=== PATIENT | female | born 1990 | race Caucasian/White ===

== ENCOUNTER 2016-04-26 18:31 | Inpatient (IN) | payer OTHER ==
[2016-04-26] MEDS ORDERED: DINOPROSTONE 10 MG VAGINAL INSERT.SR PV PRN (18:35)
[2016-04-26 19:14] LABS: ABSOLUTE EOSINOPHILS # (AUTO) 0.1 10^3/uL (0.0-0.6); ABSOLUTE LYMPHOCYTES (AUTO) 1.8 10^3/uL (0.5-4.7); ABSOLUTE MONOCYTES (AUTO) 0.8 10^3/uL (0.1-1.4); ABSOLUTE NEUT (AUTO) 7.3 10^3/uL (1.7-8.2); BASOPHILS % (AUTO) 0.5 % (0-2); EOSINOPHILS % (AUTO) 0.9 % (0-6); HEMATOCRIT 32.2 % (36.0-47.0); HEMOGLOBIN 11.4 g/dL (12.0-15.5); MEAN CORPUSCULAR HEMOGLOBIN 30.8 pg (27.0-33.4); MEAN CORPUSCULAR HGB CONC 35.3 g/dL (32.0-36.0); MEAN CORPUSCULAR VOLUME 87 fl (80-97); RED BLOOD COUNT 3.69 10^6/uL (3.72-5.28); RED CELL DISTRIBUTION WIDTH 12.7 % (11.5-14.0); SEGMENTED NEUTROPHILS % (AUTO) 72.6 % (42-78)
[2016-04-26 19:33] LABS: APPEARANCE,URINE SLIGHTLY-CLOUDY; BILIRUBIN,URINE NEGATIVE (NEGATIVE); GLUCOSE, URINE NEGATIVE (NEGATIVE); KETONES,URINE NEGATIVE (NEGATIVE); LEUKOCYTE ESTERASE,URINE SMALL (NEGATIVE); NITRITE,URINE NEGATIVE (NEGATIVE); PROTEIN,URINE NEGATIVE (NEGATIVE); UROBILINOGEN,URINE NEGATIVE mg/dL (<2.0)
[2016-04-26 19:53] LABS: URINE BARBITURATES SCREEN NEGATIVE; URINE METHADONE SCREEN NEGATIVE; URINE OPIATES LOW NEGATIVE; URINE PHENCYCLIDINE SCREEN NEGATIVE
--- NOTE | 2016-04-26 20:01 | L&D Flow Sheet ---
LD Flowsheet Datetime Report Generated by CPN: 04/26/2016 20:00 Datetime: 04/26/2016 19:21 Patient Care IV/Blood Work: IV Started; IV Bolus Started; New IV Bag Hung; IV Bag Number @ 1 (Tanisha Lattibeaudeir, RN) Datetime: 04/26/2016 19:15 Medications Cervical Ripening Agents: Cervidil (Tanisha Lattibeaudeir, RN) Datetime: 04/26/2016 19:09 Communication Communication Comments: Report given to S. Lattibeaudeir, RN. Care relinquished at this time. (Monica Daley, RN) Datetime: 04/26/2016 19:04 Patient Care IV/Blood Work: Labs Drawn (Monica Edi, RN) Datetime: 04/26/2016 19:01 Patient Position/Activity: Left Lateral; Low Fowlers (Monica Maryoshifka, RN) Datetime: 04/26/2016 19:00 Teaching Instructional Method: Verbal; Patient Instructed; Verbalized Understanding (Monica Daley RN) Plan of Care: Plan of Care Discussed; Induction (Monica Daley RN) Unit Routine: [place] to Room; Call [place]; Bed; Visiting Policy; Waiting Areas; Unit Personnel; Monitoring; Bathroom Privileges (Monica Daley RN) Labor/Induction: Cervical Ripening (Monica Daley RN)
[2016-04-26] MEDS: RINGERS SOLUTION,LACTATED 1,000 ML IV PRN (20:03)
[2016-04-26] MEDS ORDERED: DINOPROSTONE 10 MG VAGINAL INSERT.SR ONE (20:31)
[2016-04-26] MEDS: ZOLPIDEM TARTRATE 5 MG TABLET PO SCH (20:48)
[2016-04-26] MEDS ORDERED: ZOLPIDEM TARTRATE 5 MG TABLET ONE (20:48)
[2016-04-27] MEDS: RINGERS SOLUTION,LACTATED 1,000 ML IV PRN (01:12)
[2016-04-27] MEDS ORDERED: PENICILLIN G-K 5 MILLION UNIT VIAL IV ONE (08:00)
[2016-04-27] MEDS ORDERED: PENICILLIN G POTASSIUM 5,000,000 UNIT in DEXTROSE 5%-WATER 100 ML IV ONE (08:00)
--- NOTE | 2016-04-27 08:01 | L&D Flow Sheet ---
LD Flowsheet Datetime Report Generated by CPN: 04/27/2016 08:00 Datetime: 04/27/2016 07:30 Monitor Mode: External; Palpation (Dallin Singletoneet, RN) Frequency (min): 2-5 (Dallin Queenie, RN) Quality: Mild/Moderate (Dallin Queenie, RN) Duration (sec): 70-110 (Dallin Singletoneet, RN) Resting Tone (Palpate): Relaxed (Dallin Queenie, RN) Monitor Mode: External US (Dallin Queenie, RN) FHR Baseline Rate : 135 (Dallin Queenie, RN) Variability: Moderate 6-25 bpm (Dallin Queenie, RN) Accelerations: 15X15 (Dallin Queenie, RN) Decelerations: None (Dallin Queenie, RN) Communication: RN Reviewed Strip (Dallin Jerome, RN) Datetime: 04/27/2016 07:00 Monitor Mode: External (Tanisha Lattibeaudeir, RN) Frequency (min): 1-4.5 (Tanisha Lattibeaudeir, RN) Quality: Mild/Moderate (Tanisha Lattibeaudeir, RN) Duration (sec): 50-100 (Tanisha Lattibeaudeir, RN) Resting Tone (Palpate): Relaxed (Tanisha Lattibeaudeir, RN) Monitor Mode: External US (Tanisha Lattibeaudeir, RN) FHR Baseline Rate : 135 (Tanisha Lattibeaudeir, RN) Variability: Moderate 6-25 bpm (Tanisha Lattibeaudeir, RN) Accelerations: 15X15 (Tanisha Lattibeaudeir, RN) Datetime: 04/27/2016 06:30 Monitor Mode: External (Tanisha Lattibeaudeir, RN) Frequency (min): 2-5.5 (Tanisha Lattibeaudeir, RN) Quality: Mild/Moderate (Tanisha Lattibeaudeir, RN) Duration (sec): 60-130 (Tanisha Lattibeaudeir, RN) Resting Tone (Palpate): Relaxed (Tanisha Lattibeaudeir, RN) Monitor Mode: External US (Tanisha Lattibeaudeir, RN) FHR Baseline Rate : 135 (Tanisha Lattibeaudeir, RN) Variability: Moderate 6-25 bpm (Tanisha Lattibeaudeir, RN) Accelerations: 15X15 (Tanisha Lattibeaudeir, RN) Datetime: 04/27/2016 06:00 Monitor Mode: External (Tanisha Lattibeaudeir, RN) Frequency (min): 1.5-5 (Tanisha Lattibeaudeir, RN) Quality: Mild/Moderate (Tanisha Lattibeaudeir, RN) Duration (sec): 50-120 (Tanisha Lattibeaudeir, RN) Resting Tone (Palpate): Relaxed (Tanisha Lattibeaudeir, RN) Monitor Mode: External US (Tanisha Lattibeaudeir, RN) FHR Baseline Rate : 120 (Tanisha Lattibeaudeir, RN) Variability: Moderate 6-25 bpm (Tanisha Lattibeaudeir, RN) Accelerations: 15X15 (Tanisha Lattibeaudeir, RN) Datetime: 04/27/2016 05:30 Monitor Mode: External (Tanisha Lattibeaudeir, RN) Frequency (min): 1.5-4.5 (Tanisha Lattibeaudeir, RN) Quality: Mild/Moderate (Tanisha Lattibeaudeir, RN) Duration (sec): 60-80 (Tanisha Lattibeaudeir, RN) Resting Tone (Palpate): Relaxed (Tanisha Lattibeaudeir, RN) Monitor Mode: External US (Tanisha Lattibeaudeir, RN) FHR Baseline Rate : 125 (Tanisha Lattibeaudeir, RN) Variability: Moderate 6-25 bpm (Tanisha Lattibeaudeir, RN) Accelerations: 15X15 (Tanisha Lattibeaudeir, RN) Datetime: 04/27/2016 05:23 I/O Interventions: Up to BR (Tanisha Lattibeaudeir, RN) Datetime: 04/27/2016 05:00 Monitor Mode: External (Tanisha Lattibeaudeir, RN) Frequency (min): 1.5-4 (Tanisha Lattibeaudeir, RN) Quality: Mild/Moderate (Tanisha Lattibeaudeir, RN) Duration (sec): 60-120 (Tanisha Lattibeaudeir, RN) Resting Tone (Palpate): Relaxed (Tanisha Lattibeaudeir, RN) Monitor Mode: External US (Tanisha Lattibeaudeir, RN) FHR Baseline Rate : 125 (Tanisha Lattibeaudeir, RN) Variability: Moderate 6-25 bpm (Tanisha Lattibeaudeir, RN) Accelerations: 15X15 (Tanisha Lattibeaudeir, RN) Datetime: 04/27/2016 04:30 Monitor Mode: External (Tanisha Lattibeaudeir, RN) Frequency (min): 2-6 (Tanisha Lattibeaudeir, RN) Quality: Mild/Moderate (Tanisha Lattibeaudeir, RN) Duration (sec): 60-120 (Tanisha Lattibeaudeir, RN) Resting Tone (Palpate): Relaxed (Tanisha Lattibeaudeir, RN) Monitor Mode: External US (Tanisha Lattibeaudeir, RN) FHR Baseline Rate : 135 (Tanisha Lattibeaudeir, RN) Variability: Moderate 6-25 bpm (Tanisha Lattibeaudeir, RN) Accelerations: 15X15 (Tanisha Lattibeaudeir, RN) Datetime: 04/27/2016 04:00 Monitor Mode: External (Tanisha Lattibeaudeir, RN) Frequency (min): 1-5.5 (Tanisha Lattibeaudeir, RN) Quality: Mild/Moderate (Tanisha Lattibeaudeir, RN) Duration (sec): 60-140 (Tanisha Lattibeaudeir, RN) Resting Tone (Palpate): Relaxed (Tanisha Lattibeaudeir, RN) Monitor Mode: External US (Tanisha Lattibeaudeir, RN) FHR Baseline Rate : 130 (Tanisha Lattibeaudeir, RN) Variability: Moderate 6-25 bpm (Tanisha Lattibeaudeir, RN) Accelerations: 15X15 (Tanisha Lattibeaudeir, RN) Datetime: 04/27/2016 03:30 Monitor Mode: External (Tanisha Lattibeaudeir, RN) Frequency (min): 1.5-6 (Tanisha Lattibeaudeir, RN) Quality: Mild/Moderate (Tanisha Lattibeaudeir, RN) Duration (sec): 60-140 (Tanisha Lattibeaudeir, RN) Resting Tone (Palpate): Relaxed (Tanisha Lattibeaudeir, RN) Monitor Mode: External US (Tanisha Lattibeaudeir, RN) FHR Baseline Rate : 135 (Tanisha Lattibeaudeir, RN) Variability: Moderate 6-25 bpm (Tanisha Lattibeaudeir, RN) Accelerations: 15X15 (Tanisha Lattibeaudeir, RN) Datetime: 04/27/2016 03:00 Monitor Mode: External (Tanisha Lattibeaudeir, RN) Frequency (min): 1.5-7 (Tanisha Lattibeaudeir, RN) Quality: Mild/Moderate (Tanisha Lattibeaudeir, RN) Duration (sec): 60-160 (Tanisha Lattibeaudeir, RN) Resting Tone (Palpate): Relaxed (Tanisha Lattibeaudeir, RN) Monitor Mode: External US (Tanisha Lattibeaudeir, RN) FHR Baseline Rate : 130 (Tanisha Lattibeaudeir, RN) Variability: Moderate 6-25 bpm (Tanisha Lattibeaudeir, RN) Accelerations: 15X15 (Tanisha Lattibeaudeir, RN) Datetime: 04/27/2016 02:30 Monitor Mode: External (Tanisha Lattibeaudeir, RN) Frequency (min): 1.5-7 (Tanisha Lattibeaudeir, RN) Quality: Mild/Moderate (Tanisha Lattibeaudeir, RN) Duration (sec): 50-150 (Tanisha Lattibeaudeir, RN) Resting Tone (Palpate): Relaxed (Tanisha Lattibeaudeir, RN) Monitor Mode: External US (Tanisha Lattibeaudeir, RN) FHR Baseline Rate : 125 (Tanisha Lattibeaudeir, RN) Variability: Moderate 6-25 bpm (Tanisha Lattibeaudeir, RN) Accelerations: 15X15 (Tanisha Lattibeaudeir, RN) Datetime: 04/27/2016 02:00 Monitor Mode: External (Tanisha Lattibeaudeir, RN) Frequency (min): 2-5 (Tanisha Lattibeaudeir, RN) Quality: Mild/Moderate (Tanisha Lattibeaudeir, RN) Duration (sec): 40-150 (Tanisha Lattibeaudeir, RN) Resting Tone (Palpate): Relaxed (Tanisha Lattibeaudeir, RN) Monitor Mode: External US (Tanisha Lattibeaudeir, RN) FHR Baseline Rate : 125 (Tanisha Lattibeaudeir, RN) Variability: Moderate 6-25 bpm (Tanisha Lattibeaudeir, RN) Accelerations: 15X15 (Tanisha Lattibeaudeir, RN) Datetime: 04/27/2016 01:30 Monitor Mode: External (Tanisha Lattibeaudeir, RN) Frequency (min): 1.5-3.5 (Tanisha Lattibeaudeir, RN) Quality: Mild/Moderate (Tanisha Lattibeaudeir, RN) Duration (sec): 60-120 (Tanisha Lattibeaudeir, RN) Resting Tone (Palpate): Relaxed (Tanisha Lattibeaudeir, RN) Monitor Mode: External US (Tanisha Lattibeaudeir, RN) FHR Baseline Rate : 120 (Tanisha Lattibeaudeir, RN) Variability: Moderate 6-25 bpm (Tanisha Lattibeaudeir, RN) Accelerations: 15X15 (Tanisha Lattibeaudeir, RN) Datetime: 04/27/2016 01:11 IV/Blood Work: New IV Bag Hung; IV Bag Number @ 2 (Tanisha Lattibeaudeir, RN) Datetime: 04/27/2016 01:00 Monitor Mode: External (Tanisha Lattibeaudeir, RN) Frequency (min): 3-6 (Tanisha Lattibeaudeir, RN) Quality: Mild/Moderate (Tanisha Lattibeaudeir, RN) Duration (sec): 50-120 (Tanisha Lattibeaudeir, RN) Resting Tone (Palpate): Relaxed (Tanisha Lattibeaudeir, RN) Monitor Mode: External US (Tanisha Lattibeaudeir, RN) FHR Baseline Rate : 125 (Tanisha Lattibeaudeir, RN) Variability: Moderate 6-25 bpm (Tanisha Lattibeaudeir, RN) Accelerations: 15X15 (Tanisha Lattibeaudeir, RN) Datetime: 04/27/2016 00:59 I/O Interventions: Up to BR (Tanisha Lattibeaudeir, RN) Datetime: 04/27/2016 00:30 Monitor Mode: External (Tanisha Lattibeaudeir, RN) Frequency (min): 2.5-6.5 (Tanisha Lattibeaudeir, RN) Quality: Mild (Tanisha Lattibeaudeir, RN) Duration (sec): 60-150 (Tanisha Lattibeaudeir, RN) Resting Tone (Palpate): Relaxed (Tanisha Lattibeaudeir, RN) Monitor Mode: External US (Tanisha Lattibeaudeir, RN) FHR Baseline Rate : 125 (Tanisha Lattibeaudeir, RN) Variability: Moderate 6-25 bpm (Tanisha Lattibeaudeir, RN) Accelerations: 15X15 (Tanisha Lattibeaudeir, RN) Datetime: 04/27/2016 00:00 Monitor Mode: External (Tanisha Lattibeaudeir, RN) Frequency (min): 1.5-7.5 (Tanisha Lattibeaudeir, RN) Quality: Moderate (Tanisha Lattibeaudeir, RN) Duration (sec): 60-110 (Tanisha Lattibeaudeir, RN) Resting Tone (Palpate): Relaxed (Tanisha Lattibeaudeir, RN) Monitor Mode: External US (Tanisha Lattibeaudeir, RN) FHR Baseline Rate : 120 (Tanisha Lattibeaudeir, RN) Variability: Moderate 6-25 bpm (Tanisha Lattibeaudeir, RN) Accelerations: 15X15 (Tanisha Lattibeaudeir, RN) Datetime: 04/26/2016 23:30 Monitor Mode: External (Tanisha Lattibeaudeir, RN) Frequency (min): 1-5 (Tanisha Lattibeaudeir, RN) Quality: Mild (Tanisha Lattibeaudeir, RN) Duration (sec): 50-120 (Tanisha Lattibeaudeir, RN) Resting Tone (Palpate): Relaxed (Tanisha Lattibeaudeir, RN) Monitor Mode: External US ([place] Lattibeaudeir, RN) FHR Baseline Rate : 130 (Tanisha Lattibeaudeir, RN) Variability: Moderate 6-25 bpm (Tanisha Lattibeaudeir, RN) Accelerations: 15X15 (Tanisha Lattibeaudeir, RN) Datetime: 04/26/2016 23:00 Monitor Mode: External (Tanisha Lattibeaudeir, RN) Frequency (min): 1.5-8 (Tanisha Lattibeaudeir, RN) Quality: Mild (Tanisha Lattibeaudeir, RN) Duration (sec): 60-120 (Tanisha Lattibeaudeir, RN) Resting Tone (Palpate): Relaxed (Tanisha Lattibeaudeir, RN) Monitor Mode: External US (Tanisha Lattibeaudeir, RN) FHR Baseline Rate : 130 (Tanisha Lattibeaudeir, RN) Variability: Moderate 6-25 bpm (Tanisha Lattibeaudeir, RN) Accelerations: 15X15 (Tanisha Lattibeaudeir, RN) Datetime: 04/26/2016 22:30 Monitor Mode: External (Tanisha Lattibeaudeir, RN) Frequency (min): 4-8 (Tanisha Lattibeaudeir, RN) Quality: Mild (Tanisha Lattibeaudeir, RN) Duration (sec): 60-110 (Tanisha Lattibeaudeir, RN) Resting Tone (Palpate): Relaxed (Tanisha Lattibeaudeir, RN) Monitor Mode: External US (Tanisha Lattibeaudeir, RN) FHR Baseline Rate : 135 (Tanisha Lattibeaudeir, RN) Variability: Moderate 6-25 bpm (Tanisha Lattibeaudeir, RN) Accelerations: 15X15 (Tanisha Lattibeaudeir, RN) Datetime: 04/26/2016 22:00 Frequency (min): 1-14 (Tanisha Lattibeaudeir, RN) Quality: Mild (Tanisha Lattibeaudeir, RN) Duration (sec): 60-110 (Tanisha Lattibeaudeir, RN) Resting Tone (Palpate): Relaxed (Tanisha Lattibeaudeir, RN) Monitor Mode: External US (Tanisha Lattibeaudeir, RN) FHR Baseline Rate : 135 (Tanisha Lattibeaudeir, RN) Variability: Moderate 6-25 bpm (Tanisha Lattibeaudeir, RN) Accelerations: 15X15 (Tanisha Lattibeaudeir, RN) Datetime: 04/26/2016 21:41 NBP Sys/Lizzie/Mean (mmHg): 123 (QS system process) : 64 (QS system process) : 88 (QS system process) Pulse: 82 (QS system process) Respirations: 16 (Tanisha Lattibeaudeir, RN) Temperature (F): 98.2 (Tanisha Lattibeaudeir, RN) Temperature (C): 36.8 (QS system process) Temperature Route: Oral (Tanisha Lattibeaudeir, RN) LaborFlag: Antepartum (QS system process) Datetime: 04/26/2016 21:30 Monitor Mode: External (Tanisha Lattibeaudeir, RN) Frequency (min): x3 (Tanisha Lattibeaudeir, RN) Quality: Mild (Tanisha Lattibeaudeir, RN) Duration (sec): 110-120 (Tanisha Lattibeaudeir, RN) Resting Tone (Palpate): Relaxed (Tanisha Lattibeaudeir, RN) Monitor Mode: External US (Tanisha Lattibeaudeir, RN) FHR Baseline Rate : 125 (Tanisha Lattibeaudeir, RN) Variability: Moderate 6-25 bpm (Tanisha Lattibeaudeir, RN) Accelerations: 15X15 (Tanisha Lattibeaudeir, RN) Datetime: 04/26/2016 21:00 Monitor Mode: External; Palpation (Tanisha Lattibeaudeir, RN) Quality: Mild (Tanisha Lattibeaudeir, RN) Resting Tone (Palpate): Relaxed (Tanisha Lattibeaudeir, RN) Contraction Comments: unable to determine frequency, patient states that she does feel cramping. (Tanisha Lattibeaudeir, RN) Monitor Mode: External US (Tanisha Lattibeaudeir, RN) FHR Baseline Rate : 125 (Tanisha Lattibeaudeir, RN) Variability: Moderate 6-25 bpm (Tanisha Lattibeaudeir, RN) Accelerations: 15X15 (Tanisha Lattibeaudeir, RN) Datetime: 04/26/2016 20:48 Analgesics/Sedatives: Ambien (mg) @ 5 (Tanisha Fleming, FERNANDA) Datetime: 04/26/2016 20:40 Dilatation (cm): 2.0 (Tanisha Fleming RN) Effacement (%): 25 (Tanisha Fleming RN) Station: -2 (Tanisha Fleming RN) Exam by: Francis Fleming RN (Tanisha Fleming, RN) Membrane Status: Intact (Tanisha Fleming RN) Vaginal Bleeding: None (Tanisha Fleming RN) Cervix, Consistency: Moderate (Tanisha Fleming RN) Cervix, Position: Midposition (Tanisha Fleming RN) Vaginal Exam Comments: cervix off to patient's right (Tanisha Fleming RN) Cervical Ripening Agents: Cervidil (Tanisha Fleming RN) Datetime: 04/26/2016 20:30 Monitor Mode: External (Tanisha Lattibeaudeir, RN) Frequency (min): 2-8.5 (Tanisha Lattibeaudeir, RN) Quality: Mild (Tanisha Lattibeaudeir, RN) Duration (sec): 60-160 (Tanisha Lattibeaudeir, RN) Resting Tone (Palpate): Relaxed (Tanisha Lattibeaudeir, RN) Monitor Mode: External US (Tanisha Lattibeaudeir, RN) FHR Baseline Rate : 135 (Tanisha Lattibeaudeir, RN) Variability: Moderate 6-25 bpm (Tanisha Lattibeaudeir, RN) Accelerations: 15X15 (Tanisha Lattibeaudeir, RN) Datetime: 04/26/2016 20:28 I/O Interventions: Up to BR (Tanisha Lattibeaudeir, RN) Datetime: 04/26/2016 20:00 Monitor Mode: External (Tanisha Fleming RN) Frequency (min): x2 (Tanisha Fleming RN) Quality: Mild (Tanisha Fleming RN) Duration (sec): 110-160 (Tanisha Fleming RN) Resting Tone (Palpate): Relaxed (Tanisha Fleming RN) Monitor Mode: External US (Tanisha Fleming RN) FHR Baseline Rate : 130 (Tanisha Fleming RN) Variability: Moderate 6-25 bpm (Tanisha Fleming RN) Accelerations: 15X15 (Tanisha Fleming RN)
[2016-04-27] MEDS ORDERED: OXYTOCIN/NORMAL SALINE 1,000 ML IV PRN ×2 (11:17→18:34)
[2016-04-27] MEDS ORDERED: PENICILLIN G-K 5 MILLION UNIT VIAL ONE ×2 (11:22→15:09)
[2016-04-27] MEDS ORDERED: OXYTOCIN/NORMAL SALINE 20 UNIT/1,000 ML RTUINJ ONE (11:22)
--- NOTE | 2016-04-27 11:36 | L&D Progress Notes ---
PROGRESS NOTES Datetime Report Generated by CPN: 04/27/2016 11:35 PROGRESS NOTE Plan: Induction Informed Consent Obtained: Vaginal Delivery; Induction of Labor; Risks, Benefits and Alternatives Discussed Comment: 25 yo admitted for cervidil 04/26/16 EDC 05/11/16 EGA 37 weeks admitted for IUGR <3% Parvo IgM- negative IgM- positive GBS positive Term gbs prophlaxis sve 2 favorable plan of care reviewed start pitocin per protocol gbs prophylaxis plan of care reviewed VAGINAL EXAM Dilatation: 3 Effacement: 50 Station: -2 Contractions: q1-6 MEMBRANES Membranes: Intact Membranes: Intact FETUS A Monitoring: External US Variability: Moderate 6-25bpm Accelerations: 15X15 Decelerations: None FHR Category: Category I : 37.0 SIGNATURE SIGNATURE: [id number] Assignment: Jeff Hines MD Signature: with User ID: [email or web address] : with User ID: [email or web address]
[2016-04-27] MEDS ORDERED: PENICILLIN G POTASSIUM 2,500,000 UNIT in DEXTROSE 5%-WATER 50 ML IV SCH (12:00)
[2016-04-27] MEDS ORDERED: PENICILLIN G-K 5 MILLION UNIT VIAL IV SCH (12:00)
[2016-04-27] MEDS ORDERED: EPHEDRINE SULFATE INJ 50 MG/1 ML AMPULE ONE (14:57)
[2016-04-27] MEDS ORDERED: FENTANYL/BUPIVACAINE/NS/PF 200 MCG/100 ML RTUINJ EPI ONE (14:58)
[2016-04-27] MEDS ORDERED: BUPIVACAINE HCL 0.25 % INJ/PF (2.5 MG/1 ML) 30 ML VIAL ONE (14:58)
--- NOTE | 2016-04-27 16:39 | L&D Progress Notes ---
PROGRESS NOTES Datetime Report Generated by CPN: 04/27/2016 16:38 PROGRESS NOTE Procedures: Artificial ROM Plan: Continue Present Management; Induction Informed Consent Obtained: Vaginal Delivery; Section Delivery; Induction of Labor; Risks, Benefits and Alternatives Discussed Vital Signs : Reviewed Comment: pt comfortable after epidural placement ctxs irregular pitocin at 18 mu/ min AROM clear cervix / GBS positive IUGR- term prophylaxis x 2 contractions 2-3 now anticipate VAGINAL EXAM Dilatation: 4 Effacement: 75 Station: -2 MEMBRANES Membranes: Ruptured Amniotic Fluid Color: Clear FETUS A Monitoring: External US Decelerations: None FHR Category: Category I : 38.0 FETUS C SIGNATURE: [id number] Assignment: Jeff Hines MD Signature: with User ID: [email or web address] : with User ID: [email or web address]
[2016-04-27] MEDS ORDERED: LIDOCAINE 2% INJ-PF (20 MG/ML) 10 ML AMPUL ONE (17:13)
[2016-04-27] MEDS ORDERED: LIDOCAINE 1% INJ-PF (10 MG/ML) 30 ML SDV ONE (17:49)
[2016-04-27] MEDS ORDERED: MISOPROSTOL 0.2 MG TABLET ONE (17:49)
[2016-04-27] MEDS ORDERED: PSEUDOEPHEDRINE HCL 30 MG TABLET PO PRN (18:34)
[2016-04-27] MEDS ORDERED: ACETAMINOPHEN 650 MG SUPP.RECT PR PRN (18:34)
[2016-04-27] MEDS ORDERED: GLYCERIN/WITCH HAZEL LEAF 1 EACH MED..PAD TP PRN (18:34)
[2016-04-27] MEDS ORDERED: ACETAMINOPHEN WITH CODEINE #3 TABLET PO PRN ×2 (18:34)
[2016-04-27] MEDS ORDERED: ZOLPIDEM TARTRATE 5 MG TABLET PO PRN (18:34)
[2016-04-27] MEDS ORDERED: MEASLES,MUMPS&RUBELLA VACC/PF 0.5 ML VIAL SUBCUT PRN (18:34)
[2016-04-27] MEDS ORDERED: DIBUCAINE 1% OINTMENT 28 GM TP PRN (18:34)
[2016-04-27] MEDS ORDERED: DIPHENHYDRAMINE HCL 25 MG CAPSULE PO PRN (18:34)
[2016-04-27] MEDS ORDERED: NA PHOS,M-B/NA PHOS,DI-BA (ADULT) 133 ML ENEMA PR PRN (18:34)
[2016-04-27] MEDS ORDERED: PROMETHAZINE HCL 25 MG SUPP.RECT PR PRN (18:34)
[2016-04-27] MEDS ORDERED: PROMETHAZINE HCL 25 MG TABLET PO PRN (18:34)
[2016-04-27] MEDS ORDERED: MAGNESIUM HYDROXIDE SUSP 30 ML UDCUP PO PRN (18:34)
[2016-04-27] MEDS ORDERED: DIPH/PERTUSS(ACELL)/TETANUS VAC/PF 0.5 ML SYR (>=10YO) IM PRN (18:34)
[2016-04-27] MEDS ORDERED: PROMETHAZINE HCL INJ 25 MG/1 ML VIAL IV PRN (18:34)
[2016-04-27] MEDS ORDERED: BENZOCAINE/MENTHOL AEROSOL SPRAY 56 ML TOP PRN (18:34)
--- NOTE | 2016-04-27 20:03 | L&D Flow Sheet ---
LD Flowsheet Datetime Report Generated by CPN: 04/27/2016 20:00 Datetime: 04/27/2016 19:49 NBP Sys/Lizzie/Mean (mmHg): 129 (QS system process) : 81 (QS system process) : 100 (QS system process) Pulse: 65 (QS system process) Respirations: 16 (Danuta Vitrano, RN) Datetime: 04/27/2016 19:45 Stage of : Recovery (Danuta Vitrano, RN) Pain Scale: 0 (Danuta Vitrano, RN) Pain Presence: None/Denies (Danuta Vitrano, RN) Pain Type: N/A (Danuta Vitrano, RN) Datetime: 04/27/2016 19:34 NBP Sys/Lizzie/Mean (mmHg): 132 (QS system process) : 86 (QS system process) : 104 (QS system process) Pulse: 76 (QS system process) Respirations: 16 (Danuta Vitrano, RN) Datetime: 04/27/2016 19:30 Stage of : Recovery (Danuta Vitrano, RN) Pain Scale: 0 (Danuta Vitrano, RN) Pain Presence: None/Denies (Danuta Vitrano, RN) Pain Type: N/A (Danuta Vitrano, RN) Datetime: 04/27/2016 19:20 NBP Sys/Lizzie/Mean (mmHg): 130 (QS system process) : 81 (QS system process) : 98 (QS system process) Pulse: 78 (QS system process) Respirations: 16 (Danuta Vitrano, RN) Datetime: 04/27/2016 19:15 Stage of : Recovery (Danuta Vitrano, RN) Pain Scale: 0 (Danuta Vitrano, RN) Pain Presence: None/Denies (Danuta Vitrano, RN) Pain Type: N/A (Danuta Vitrano, RN) Datetime: 04/27/2016 19:04 NBP Sys/Lizzie/Mean (mmHg): 136 (QS system process) : 60 (QS system process) : 87 (QS system process) Pulse: 78 (QS system process) Respirations: 16 (Danuta Vitrano, RN) Datetime: 04/27/2016 19:00 Stage of : Recovery (Danuta Vitrano, RN) Pain Scale: 0 (Danuta Vitrano, RN) Pain Presence: None/Denies (Danuta Vitrano, RN) Pain Type: N/A (Danuta Vitrano, RN) Datetime: 04/27/2016 18:52 Stage of : Recovery (Danuta Vitrano, RN) Datetime: 04/27/2016 18:51 Stage of : Recovery (Danuta Vitrano, RN) Pain Scale: 0 (Danuta Vitrano, RN) Pain Presence: None/Denies (Danuta Vitrano, RN) Pain Type: N/A (Danuta Vitrano, RN) Datetime: 04/27/2016 18:49 NBP Sys/Lizzie/Mean (mmHg): 126 (QS system process) : 60 (QS system process) : 87 (QS system process) Pulse: 77 (QS system process) Respirations: 17 (Danuta Vitrano, RN) LaborFlag: Labor (QS system process) Datetime: 04/27/2016 18:45 Monitor Mode: External (Danuta Vitrano, RN) Frequency (min): 1-3 (Danuta Vitrano, RN) Quality: Moderate to Strong (Danuta Vitrano, RN) Duration (sec): 50-100 (Danuta Vitrano, RN) Duration Criteria: Less than Two 120 Second Contractions (Danuta Vitrano, RN) Pattern: Normal: <= 5 Contractions in 10 Minutes (Danuta Ford RN) Resting Tone (Palpate): Relaxed (Danuta Ford RN) Monitor Mode: External US (Danuta Ford RN) Comments: Unable to establish baseline d/t broken tracing, RN adjusting US continuously. (Danuta Ford RN) Pitocin (milliunit): Pitocin Remains (milliunits) @ 18 (Danuta Ford RN) Stage 2 Comments: viable baby girl, see delivery summary (Danuta Ford RN) Datetime: 04/27/2016 18:41 Provider Reviewed Strip: Yes (Danuta Ford RN) Communication: Provider at Bedside (Danuta Ford RN) Datetime: 04/27/2016 18:38 Pushing Progress: Presenting Part Visible (Danuta Ford RN) Datetime: 04/27/2016 18:34 Pushing Progress: Descent with Pushing (Danuta Vitrano, RN) Datetime: 04/27/2016 18:30 Monitor Mode: External (Danuta Vitrano, RN) Frequency (min): 1-3 (Danuta Vitrano, RN) Quality: Moderate to Strong (Danuta Vitrano, RN) Duration (sec): 60-100 (Danuta Vitrano, RN) Duration Criteria: Less than Two 120 Second Contractions (Danuta Vitrano, RN) Pattern: Normal: <= 5 Contractions in 10 Minutes (Danuta Vitrano, RN) Resting Tone (Palpate): Relaxed (Danuta Vitrano, RN) Monitor Mode: External US (Danuta Vitrano, RN) Comments: Unable to establish baseline d/t broken tracing, RN remains at bedside adjusting US (Danuta Vitrano, RN) Pitocin (milliunit): Pitocin Remains (milliunits) @ 18 (Danuta Vitrano, RN) Datetime: 04/27/2016 18:26 Pushing Position: Pushing Lithotomy (Danuta Vitrano, RN) Datetime: 04/27/2016 18:22 Pushing Position: Pushing Left Side (Danuta Vitrano, RN) Datetime: 04/27/2016 18:19 NBP Sys/Lizzie/Mean (mmHg): 125 (QS system process) : 73 (QS system process) : 93 (QS system process) Pulse: 76 (QS system process) Respirations: 17 (Danuta Vitrano, RN) LaborFlag: Labor (QS system process) Datetime: 04/27/2016 18:15 Monitor Mode: External (Danuta Vitrano, RN) Frequency (min): 1-3 (Danuta Vitrano, RN) Quality: Moderate to Strong (Danuta Vitrano, RN) Duration (sec): 60-100 (Danuta Vitrano, RN) Duration Criteria: Less than Two 120 Second Contractions (Danuta Vitrano, RN) Pattern: Normal: <= 5 Contractions in 10 Minutes (Danuta Vitrano, RN) Resting Tone (Palpate): Relaxed (Danuta Vitrano, RN) Monitor Mode: External US (Danuta Vitrano, RN) FHR Baseline Rate : 120 (Danuta Vitrano, RN) Variability: Moderate 6-25 bpm (Danuta Vitrano, RN) Accelerations: None (Danuta Vitrano, RN) Decelerations: Variable; Prolonged (Danuta Vitrano, RN) Pitocin (milliunit): Pitocin Remains (milliunits) @ 18 (Danuta Vitrano, RN) Patient Position/Activity: Left Tilt (Danuta Vitrano, RN) Datetime: 04/27/2016 18:12 Stage 2 Comments: Tug of war (Danuta Vitrano, RN) Datetime: 04/27/2016 18:09 Pushing Position: Pushing Lithotomy (Danuta Vitrano, RN) Stage 2 Comments: R tilt (Danuta Vitrano, RN) Datetime: 04/27/2016 18:05 Pushing Position: Pushing Right Side (Danuta Vitrano, RN) Datetime: 04/27/2016 18:03 Pushing Progress: Descent with Pushing (Danuta Vitrano, RN) Datetime: 04/27/2016 18:01 Pushing Position: Pushing Lithotomy (Danuta Vitrano, RN) Datetime: 04/27/2016 18:00 Monitor Mode: External; Palpation (Danuta Vitrano, RN) Frequency (min): 1-3 (Danuta Vitrano, RN) Quality: Moderate to Strong (Danuta Vitrano, RN) Duration (sec): 60-100 (Danuta Vitrano, RN) Duration Criteria: Less than Two 120 Second Contractions (Danuta Vitrano, RN) Pattern: Normal: <= 5 Contractions in 10 Minutes (Danuta Vitrano, RN) Resting Tone (Palpate): Relaxed (Danuta Vitrano, RN) Monitor Mode: External US (Danuta Vitrano, RN) FHR Baseline Rate : 135 (Danuta Vitrano, RN) Variability: Moderate 6-25 bpm (Danuta Vitrano, RN) Accelerations: None (Danuta Vitrano, RN) Decelerations: Variable (Danuta Vitrano, RN) Pitocin (milliunit): Pitocin Remains (milliunits) @ 18 (Danuta Vitrano, RN) Datetime: 04/27/2016 17:58 IV/Blood Work: IV Infusing per Order (Danuta Vitrano, RN) Pushing Position: Pushing Left Side (Danuta Vitrano, RN) Datetime: 04/27/2016 17:53 Stage 2 Comments: Pt to begin pushing with contractions. RN remains at bedside continuously adjusting US and assessing FHTs. (Danuta Vitrano, RN) Datetime: 04/27/2016 17:51 I/O Interventions: Mtz Discontinued (Danuta Vitrano, RN) Datetime: 04/27/2016 17:50 NBP Sys/Lizzie/Mean (mmHg): 130 (QS system process) : 78 (QS system process) : 97 (QS system process) Pulse: 82 (QS system process) Respirations: 17 (Danuta Ford RN) LaborFlag: Labor (QS system process) Datetime: 04/27/2016 17:47 Dilatation (cm): 10.0 (Danuta Liliana RN) Effacement (%): 100 (Danuta Liliana, RN) Station: 2 (Danuta Liliana, RN) Exam by: Juan Ford RN (Danuta Liliana, RN) Communication Comments: Dr. Hines notified, pt to begin pushing (Danutaean Ford RN) Datetime: 04/27/2016 17:45 Monitor Mode: External (Danuta Vitrano, RN) Frequency (min): 1-3 (Danuta Vitrano, RN) Quality: Moderate to Strong (Danuta Vitrano, RN) Duration (sec): 50-100 (Danuta Vitrano, RN) Duration Criteria: Less than Two 120 Second Contractions (Danuta Vitrano, RN) Pattern: Normal: <= 5 Contractions in 10 Minutes (Danuta Vitrano, RN) Resting Tone (Palpate): Relaxed (Danuta Vitrano, RN) Monitor Mode: External US (Danuta Vitrano, RN) FHR Baseline Rate : 135 (Danuta Vitrano, RN) Variability: Moderate 6-25 bpm (Danuta Vitrano, RN) Accelerations: None (Danuta Vitrano, RN) Decelerations: Variable; Prolonged (Danuta Vitrano, RN) Pitocin (milliunit): Pitocin Remains (milliunits) @ 18 (Danuta Vitrano, RN) Datetime: 04/27/2016 17:40 Pain Presence: None/Denies (Danuta Vitrano, RN) Pain Type: N/A (Danuta Vitrano, RN) Patient Position/Activity: Left Lateral; Peanut Ball (Danuta Vitrano, RN) LaborFlag: Labor (QS system process) Datetime: 04/27/2016 17:35 NBP Sys/Lizzie/Mean (mmHg): 117 (QS system process) : 65 (QS system process) : 85 (QS system process) Pulse: 71 (QS system process) Respirations: 17 (Danuta Vitrano, RN) LaborFlag: Labor (QS system process) Datetime: 04/27/2016 17:31 Patient Position/Activity: Peanut Ball; Right Extreme (Danuta Vitrano, RN) Datetime: 04/27/2016 17:30 Monitor Mode: External (Danuta Vitrano, RN) Frequency (min): 1.5-2 (Danuta Vitrano, RN) Quality: Moderate to Strong (Danuta Vitrano, RN) Duration (sec): 50-90 (Danuta Vitrano, RN) Duration Criteria: Less than Two 120 Second Contractions (Danuta Vitrano, RN) Pattern: Normal: <= 5 Contractions in 10 Minutes (Danuta Vitrano, RN) Resting Tone (Palpate): Relaxed (Danuta Vitrano, RN) Monitor Mode: External US (Danuta Vitrano, RN) FHR Baseline Rate : 130 (Danuta Vitrano, RN) Variability: Moderate 6-25 bpm (Danuta Vitrano, RN) Accelerations: None (Danuta Vitrano, RN) Decelerations: Prolonged (Danuta Vitrano, RN) Pitocin (milliunit): Pitocin Remains (milliunits) @ 18 (Danuta Vitrano, RN) Datetime: 04/27/2016 17:29 Patient Position/Activity: Right Extreme (Danuta Vitrano, RN) Patient Care Comments: L leg in stirrup (Danuta Vitrano, RN) Datetime: 04/27/2016 17:28 Anesthesia Comments: 2% Lidocaine [address] Franco (Danuta Vitrano, RN) Datetime: 04/27/2016 17:26 Monitor Interventions for FHR: Ultrasound Adjusted (Danuta Vitrano, RN) Anesthesia Comments: Dr. Franco at bedside (Danuta Vitrano, RN) Datetime: 04/27/2016 17:25 Temperature (F): 98.9 (Danuta Vitrano, RN) Temperature (C): 37.2 (QS system process) Temperature Route: Axillary (Danuta Liliana, RN) Patient Position/Activity: Right Tilt; Semi-Fowlers (Danuta Vitrano, RN) LaborFlag: Labor (QS system process) Datetime: 04/27/2016 17:24 Patient Position/Activity: Left Extreme (Danuta Vitrano, RN) Datetime: 04/27/2016 17:23 IV/Blood Work: IV Bolus Started (Danuta Vitrano, RN) Patient Position/Activity: Left Lateral (Danuta Vitrano, RN) Datetime: 04/27/2016 17:20 NBP Sys/Lizzie/Mean (mmHg): 124 (QS system process) : 72 (QS system process) : 93 (QS system process) Pulse: 71 (QS system process) Respirations: 16 (Danuta Vitrano, RN) LaborFlag: Labor (QS system process) Datetime: 04/27/2016 17:15 Monitor Mode: External (Danuta Vitrano, RN) Frequency (min): 2-3 (Danuta Vitrano, RN) Quality: Moderate to Strong (Danuta Vitrano, RN) Duration (sec): 50-90 (Danuta Vitrano, RN) Duration Criteria: Less than Two 120 Second Contractions (Danuta Vitrano, RN) Pattern: Normal: <= 5 Contractions in 10 Minutes (Danuta Vitrano, RN) Resting Tone (Palpate): Relaxed (Danuta Vitrano, RN) Monitor Mode: External US (Danuta Vitrano, RN) FHR Baseline Rate : 130 (Danuta Vitrano, RN) Variability: Moderate 6-25 bpm (Danuta Vitrano, RN) Accelerations: None (Danuta Vitrano, RN) Decelerations: Variable (Danuta Vitrano, RN) Pitocin (milliunit): Pitocin Remains (milliunits) @ 18 (Danuta Vitrano, RN) Datetime: 04/27/2016 17:10 Communication Comments: Dr. Franco called and reviewed pt complaints. Provider to come to unit to bolus epidural (Danuta Vitrano, RN) Datetime: 04/27/2016 17:09 Dilatation (cm): 4.5 (Danuta Vitrano, RN) Effacement (%): 90 (Danuta Vitrano, RN) Station: -1 (Danuta Vitrano, RN) Exam by: R. Vitrano, RN (Danuta Vitrano, RN) Datetime: 04/27/2016 17:07 Anesthesia Comments: T10 L side, pt reports no level R side (Danuta Vitrano, RN) Datetime: 04/27/2016 17:06 Pain Assessment Comments: Pt complaining of pain on R side (Danuta Vitrano, RN) LaborFlag: Labor (QS system process) Datetime: 04/27/2016 17:04 NBP Sys/Lizzie/Mean (mmHg): 119 (QS system process) : 75 (QS system process) : 93 (QS system process) Pulse: 66 (QS system process) Respirations: 16 (Danuta Vitrano, RN) LaborFlag: Labor (QS system process) Datetime: 04/27/2016 17:00 Monitor Mode: External; Palpation (Danuta Vitrano, RN) Frequency (min): 2-3 (Danuta Vitrano, RN) Quality: Moderate to Strong (Danuta Vitrano, RN) Duration (sec): 50-80 (Danuta Vitrano, RN) Duration Criteria: Less than Two 120 Second Contractions (Danuta Vitrano, RN) Pattern: Normal: <= 5 Contractions in 10 Minutes (Danuta Vitrano, RN) Resting Tone (Palpate): Relaxed (Danuta Vitrano, RN) Monitor Mode: External US (Danuta Vitrano, RN) FHR Baseline Rate : 130 (Danuta Vitrano, RN) Variability: Minimal - Undetectable to <=5 bpm (Danuta Vitrano, RN) Accelerations: None (Danuta Vitrano, RN) Decelerations: Late (Danuta Vitrano, RN) Pitocin (milliunit): Pitocin Remains (milliunits) @ 18 (Danuta Vitrano, RN) Datetime: 04/27/2016 16:52 Monitor Interventions for FHR: Ultrasound Adjusted (Danuta Vitrano, RN) Datetime: 04/27/2016 16:50 NBP Sys/Lizzie/Mean (mmHg): 116 (QS system process) : 74 (QS system process) : 90 (QS system process) Pulse: 67 (QS system process) Respirations: 16 (Danuta Vitrano, RN) LaborFlag: Labor (QS system process) Datetime: 04/27/2016 16:49 Patient Position/Activity: Right Lateral; Peanut Ball (Danuta Vitrano, RN) Datetime: 04/27/2016 16:45 Monitor Mode: External (Danuta Vitrano, RN) Frequency (min): 1-3 (Danuta Vitrano, RN) Quality: Moderate (Danuta Vitrano, RN) Duration (sec): 60-80 (Danuta Vitrano, RN) Duration Criteria: Less than Two 120 Second Contractions (Danuta Vitrano, RN) Pattern: Normal: <= 5 Contractions in 10 Minutes (Danuta Vitrano, RN) Resting Tone (Palpate): Relaxed (Danuta Vitrano, RN) Monitor Mode: External US (Danuta Vitrano, RN) FHR Baseline Rate : 135 (Danuta Vitrano, RN) Variability: Moderate 6-25 bpm (Danuta Vitrano, RN) Accelerations: 10X10 (Danuta Vitrano, RN) Decelerations: None (Danuta Vitrano, RN) Pitocin (milliunit): Pitocin Remains (milliunits) @ 18 (Danuta Vitrano, RN) Datetime: 04/27/2016 16:35 NBP Sys/Lizzie/Mean (mmHg): 136 (QS system process) : 82 (QS system process) : 104 (QS system process) Pulse: 66 (QS system process) Respirations: 16 (Danuta Vitrano, RN) LaborFlag: Labor (QS system process) Datetime: 04/27/2016 16:30 Monitor Mode: External (Danuta Vitrano, RN) Frequency (min): 2-3 (Danuta Vitrano, RN) Quality: Moderate (Danuta Vitrano, RN) Duration (sec): 60-80 (Danuta Vitrano, RN) Duration Criteria: Less than Two 120 Second Contractions (Danuta Vitrano, RN) Pattern: Normal: <= 5 Contractions in 10 Minutes (Danuta Vitrano, RN) Resting Tone (Palpate): Relaxed (Danuta Vitrano, RN) Monitor Mode: External US (Danuta Vitrano, RN) FHR Baseline Rate : 130 (Danuta Vitrano, RN) Variability: Minimal - Undetectable to <=5 bpm (Danuta Vitrano, RN) Accelerations: 10X10 (Danuta Vitrano, RN) Decelerations: None (Danuta Vitrano, RN) Pitocin (milliunit): Pitocin Remains (milliunits) @ 18 (Danuta Vitrano, RN) Datetime: 04/27/2016 16:20 NBP Sys/Lizzie/Mean (mmHg): 131 (QS system process) : 63 (QS system process) : 91 (QS system process) Pulse: 68 (QS system process) Respirations: 16 (Danuta Vitrano, RN) Pitocin (milliunit): Pitocin Increased to (milliunits) @ 18 (Danuta Vitrano, RN) LaborFlag: Labor (QS system process) Datetime: 04/27/2016 16:15 Monitor Mode: External (Danuta Vitrano, RN) Frequency (min): 2-4 (Danuta Vitrano, RN) Quality: Mild/Moderate (Danuta Vitrano, RN) Duration (sec): 50-80 (Danuta Vitrano, RN) Duration Criteria: Less than Two 120 Second Contractions (Danuta Vitrano, RN) Pattern: Normal: <= 5 Contractions in 10 Minutes (Danuta Vitrano, RN) Resting Tone (Palpate): Relaxed (Danuta Vitrano, RN) Monitor Mode: External US (Danuta Vitrano, RN) FHR Baseline Rate : 130 (Danuta Vitrano, RN) Variability: Moderate 6-25 bpm (Danuta Vitrano, RN) Accelerations: 15X15 (Danuta Vitrano, RN) Decelerations: Variable; Prolonged (Danuta Vitrano, RN) Pitocin (milliunit): Pitocin Remains (milliunits) @ 16 (Danuta Vitrano, RN) Datetime: 04/27/2016 16:07 Monitor Interventions for UA: [place] Adjusted (Danuta Vitrano, RN) Datetime: 04/27/2016 16:05 Patient Position/Activity: Left Tilt; Tailors (Danuta Vitrano, RN) Hygiene: Underpad Changed (Danuta Vitrano, RN) Datetime: 04/27/2016 16:04 Vaginal Exam Comments: No change (Danuta Vitrano, RN) Patient Position/Activity: Left Lateral (Danuta Vitrano, RN) Datetime: 04/27/2016 16:01 Dilatation (cm): 4.0 (Danuta Vitrano, RN) Effacement (%): 75 (Danuta Vitrano, RN) Station: -2 (Danuta Vitrano, RN) Exam by: Renu Hernandez CNM (Danuta Vitrano, RN) Datetime: 04/27/2016 16:00 Monitor Mode: External; Palpation (Danuta Vitrano, RN) Frequency (min): 1-5 (Danuta Vitrano, RN) Quality: Mild/Moderate (Danuta Vitrano, RN) Duration (sec): 60-90 (Danuta Vitrano, RN) Duration Criteria: Less than Two 120 Second Contractions (Danuta Vitrano, RN) Pattern: Normal: <= 5 Contractions in 10 Minutes (Danuta Vitrano, RN) Resting Tone (Palpate): Relaxed (Danuta Vitrano, RN) Monitor Mode: External US (Danuta Vitrano, RN) FHR Baseline Rate : 130 (Danuta Vitrano, RN) Variability: Moderate 6-25 bpm (Danuta Vitrano, RN) Accelerations: 15X15 (Danuta Vitrano, RN) Decelerations: None (Danuta Vitrano, RN) Membrane Status: Ruptured (Danuta Vitrano, RN) Membranes Rupture Method: Artificial (Danuta Vitrano, RN) Amniotic Fluid Color: Clear (Danuta Vitrano, RN) Amniotic Fluid Amount: Moderate (Dantua Vitrano, RN) Pitocin (milliunit): Pitocin Remains (milliunits) @ 16 (Danuta Vitrano, RN) Datetime: 04/27/2016 15:52 Pain Presence: None/Denies (Danuta Vitrano, RN) Pain Type: N/A (Danuta Vitrano, RN) Patient Care Comments: Denies needs, resting with FOB at bedside (Danuta Jeremiahano, RN) LaborFlag: Labor (QS system process) Datetime: 04/27/2016 15:50 Pitocin (milliunit): Pitocin Increased to (milliunits) @ 16 (Danuta Vitrano, RN) Datetime: 04/27/2016 15:49 Monitor Interventions for UA: [place] Adjusted (Danuta Vitrano, RN) Datetime: 04/27/2016 15:46 NBP Sys/Lizzie/Mean (mmHg): 121 (QS system process) : 63 (QS system process) : 86 (QS system process) Pulse: 69 (QS system process) Respirations: 16 (Danuta Vitrano, RN) LaborFlag: Labor (QS system process) Datetime: 04/27/2016 15:45 Monitor Mode: External (Danuta Vitrano, RN) Frequency (min): 1-4 (Danuta Vitrano, RN) Quality: Mild/Moderate (Danuta Vitrano, RN) Duration (sec): 50-60 (Danuta Vitrano, RN) Duration Criteria: Less than Two 120 Second Contractions (Danuta Vitrano, RN) Pattern: Normal: <= 5 Contractions in 10 Minutes (Danuta Vitrano, RN) Resting Tone (Palpate): Relaxed (Danuta Vitrano, RN) Monitor Mode: External US (Danuta Vitrano, RN) FHR Baseline Rate : 140 (Danuta Vitrano, RN) Variability: Minimal - Undetectable to <=5 bpm (Danuta Vitrano, RN) Accelerations: 15X15 (Danuta Vitrano, RN) Decelerations: None (Danuta Vitrano, RN) Pitocin (milliunit): Pitocin Remains (milliunits) @ 14 (Danuta Vitrano, RN) Datetime: 04/27/2016 15:41 NBP Sys/Lizzie/Mean (mmHg): 119 (QS system process) : 68 (QS system process) : 88 (QS system process) Pulse: 66 (QS system process) Respirations: 16 (Danuta Vitrano, RN) LaborFlag: Labor (QS system process) Datetime: 04/27/2016 15:36 NBP Sys/Lizzie/Mean (mmHg): 118 (QS system process) : 70 (QS system process) : 89 (QS system process) Pulse: 66 (QS system process) Respirations: 16 (Danuta Vitrano, RN) Communication Comments: Reviewed SVE with CNM, CNM reviewed strip. No new orders. (Danuta Vitrano, RN) LaborFlag: Labor (QS system process) Datetime: 04/27/2016 15:31 Temperature (F): 98.4 (Danuta Vitrano, RN) Temperature (C): 36.9 (QS system process) Temperature Route: Oral (Danuta Vitrano, RN) LaborFlag: Labor (QS system process) Datetime: 04/27/2016 15:30 NBP Sys/Lizzie/Mean (mmHg): 124 (QS system process) : 63 (QS system process) : 84 (QS system process) Pulse: 74 (QS system process) Respirations: 16 (Danuta Vitrano, RN) Monitor Mode: External (Danuta Vitrano, RN) Frequency (min): 1-3 (Danuta Vitrano, RN) Quality: Mild/Moderate (Danuta Vitrano, RN) Duration (sec): 50-60 (Danuta Vitrano, RN) Duration Criteria: Less than Two 120 Second Contractions (Danuta Vitrano, RN) Pattern: Normal: <= 5 Contractions in 10 Minutes (Danuta Vitrano, RN) Resting Tone (Palpate): Relaxed (Danuta Vitrano, RN) Monitor Mode: External US (Danuta Vitrano, RN) FHR Baseline Rate : 140 (Danuta Vitrano, RN) Variability: Minimal - Undetectable to <=5 bpm (Danuta Vitrano, RN) Accelerations: None (Danuta Vitrano, RN) Decelerations: Late (Danuta Vitrano, RN) Comments: Broken tracing d/t pt position for epidural, RN at bedside adjusting US (Danuta Jeremiahano, RN) Pitocin (milliunit): Pitocin Remains (milliunits) @ 14 (Danuta Vitrano, RN) LaborFlag: Labor (QS system process) Datetime: 04/27/2016 15:29 NBP Sys/Lizzie/Mean (mmHg): 121 (QS system process) : 67 (QS system process) : 86 (QS system process) Pulse: 70 (QS system process) Monitor Interventions for UA: [place] Adjusted (Danuta Vitrano, RN) LaborFlag: Labor (QS system process) Datetime: 04/27/2016 15:28 NBP Sys/Lizzie/Mean (mmHg): 137 (QS system process) : 65 (QS system process) : 94 (QS system process) Pulse: 75 (QS system process) Medication Comments: PCN 2.5 million units IVPB (Danuta Vitrano, RN) LaborFlag: Labor (QS system process) Datetime: 04/27/2016 15:27 Patient Position/Activity: Left Lateral (Danuta Ford, RN) Datetime: 04/27/2016 15:26 NBP Sys/Lizzie/Mean (mmHg): 119 (QS system process) : 65 (QS system process) : 87 (QS system process) Pulse: 77 (QS system process) Medication Comments: Ephedrine 5 mg IV (Danuta Ford RN) LaborFlag: Labor (QS system process) Datetime: 04/27/2016 15:25 NBP Sys/Lizzie/Mean (mmHg): 116 (QS system process) : 58 (QS system process) : 82 (QS system process) Pulse: 60 (QS system process) Dilatation (cm): 3.0 (Danuta Ford RN) Effacement (%): 50 (Danuta Ford RN) Station: -2 (Danuta Ford RN) Exam by: Juan Ford RN (Danuta Ford RN) LaborFlag: Labor (QS system process) Datetime: 04/27/2016 15:24 NBP Sys/Lizzie/Mean (mmHg): 122 (QS system process) : 60 (QS system process) : 86 (QS system process) Pulse: 66 (QS system process) Medication Comments: Ephedrine 5 mg IV (Danuta Vitrano RN) I/O Interventions: Mtz Cath Inserted (Danuta Vitrano RN) LaborFlag: Labor (QS system process) Datetime: 04/27/2016 15:22 NBP Sys/Lizzie/Mean (mmHg): 118 (QS system process) NBP Sys/Lizzie/Mean (mmHg): 117 (QS system process) : 71 (QS system process) : 88 (QS system process) Pulse: 60 (QS system process) Pulse: 67 (QS system process) LaborFlag: Labor (QS system process) Datetime: 04/27/2016 15:20 NBP Sys/Lizzie/Mean (mmHg): 120 (QS system process) : 56 (QS system process) : 80 (QS system process) Pulse: 63 (QS system process) Epidural Procedure Other: Pump Started (Danuta Vitrano, RN) Anesthesia Level Check: T10- Umbilicus (Danuta Vitrano, RN) LaborFlag: Labor (QS system process) Datetime: 04/27/2016 15:19 NBP Sys/Lizzie/Mean (mmHg): 125 (QS system process) : 78 (QS system process) : 96 (QS system process) Pulse: 89 (QS system process) Monitor Interventions for UA: [place] Adjusted (Danuta Liliana, RN) Monitor Interventions for FHR: Ultrasound Adjusted (Danuta Vitrano, RN) Patient Position/Activity: Right Tilt; Low Fowlers (Danuta Vitrano, RN) LaborFlag: Labor (QS system process) Datetime: 04/27/2016 15:18 NBP Sys/Lizzie/Mean (mmHg): 125 (QS system process) : 74 (QS system process) : 93 (QS system process) Pulse: 73 (QS system process) LaborFlag: Labor (QS system process) Datetime: 04/27/2016 15:17 NBP Sys/Lizzie/Mean (mmHg): 121 (QS system process) : 74 (QS system process) : 92 (QS system process) Pulse: 68 (QS system process) LaborFlag: Labor (QS system process) Datetime: 04/27/2016 15:16 NBP Sys/Lizzie/Mean (mmHg): 123 (QS system process) NBP Sys/Lizzie/Mean (mmHg): 118 (QS system process) : 71 (QS system process) : 70 (QS system process) : 92 (QS system process) : 89 (QS system process) Pulse: 77 (QS system process) Pulse: 68 (QS system process) Anesthesia Plans: Epidural (Danuta Vitrano, RN) Epidural Procedure: Cath Placed (Danuta Vitrano, RN) Epidural Procedure: Test Dose (Danuta Vitrano, RN) LaborFlag: Labor (QS system process) Datetime: 04/27/2016 15:15 Pulse: 67 (QS system process) SpO2 (%): 99 (QS system process) Monitor Mode: External; Palpation (Danuta Vitrano, RN) Frequency (min): 1-3 (Danuta Vitrano, RN) Quality: Mild/Moderate (Danuta Vitrano, RN) Duration (sec): 50-60 (Danuta Vitrano, RN) Duration Criteria: Less than Two 120 Second Contractions (Danuta Vitrano, RN) Pattern: Normal: <= 5 Contractions in 10 Minutes (Danuta Vitrano, RN) Resting Tone (Palpate): Relaxed (Danuta Vitrano, RN) Monitor Mode: Internal Scalp Electrode (Danuta Vitrano, RN) FHR Baseline Rate : 140 (Danuta Vitrano, RN) Variability: Moderate 6-25 bpm (Danuta Vitrano, RN) Accelerations: 15X15 (Danuta Vitrano, RN) Decelerations: None (Danuta Vitrano, RN) Pitocin (milliunit): Pitocin Remains (milliunits) @ 14 (Danuta Vitrano, RN) LaborFlag: Labor (QS system process) Datetime: 04/27/2016 15:10 Pulse: 85 (QS system process) SpO2 (%): 98 (QS system process) LaborFlag: Labor (QS system process) Datetime: 04/27/2016 15:09 Procedure Verify: Correct Patient Identity; Correct Side and Site are Marked; Accurate Procedure Consent Form; Agreement on Procedure to be Done; Correct Patient Position; Relevant Images and Results are Properly Labeled and Displayed; Addressed Need to Administer Antibiotics or Fluids for Irrigation; Safety Precautions Based on Patient History or Medication Use (Danuta Ford RN) Anesthesia Plans: Epidural (Danuta Ford RN) Epidural Positioning: Sitting (Danuta Ford RN) Anesthesia Comments: Dr. Franco at bedside (Danuta Ford RN) Datetime: 04/27/2016 15:05 Pulse: 72 (QS system process) SpO2 (%): 99 (QS system process) LaborFlag: Labor (QS system process) Datetime: 04/27/2016 15:03 Anesthesia Plans: Epidural (Danuta Vitrano, RN) Epidural Positioning: Sitting (Danuta Vitrano, RN) Datetime: 04/27/2016 15:01 NBP Sys/Lizzie/Mean (mmHg): 125 (QS system process) : 72 (QS system process) : 92 (QS system process) Pulse: 68 (QS system process) LaborFlag: Labor (QS system process) Datetime: 04/27/2016 15:00 Monitor Mode: External; Palpation (Danuta Vitrano, RN) Frequency (min): 1-2 (Danuta Vitrano, RN) Quality: Mild/Moderate (Danuta Vitrano, RN) Duration (sec): 5090 (Danuta Vitrano, RN) Duration Criteria: Less than Two 120 Second Contractions (Danuta Vitrano, RN) Pattern: Normal: <= 5 Contractions in 10 Minutes (Danuta Vitrano, RN) Resting Tone (Palpate): Relaxed (Danuta Vitrano, RN) Monitor Mode: External US (Danuta Vitrano, RN) FHR Baseline Rate : 135 (Danuta Vitrano, RN) Variability: Moderate 6-25 bpm (Danuta Vitrano, RN) Accelerations: 15X15 (Danuta Vitrano, RN) Decelerations: None (Danuta Vitrano, RN) Pitocin (milliunit): Pitocin Remains (milliunits) @ 14 (Danuta Vitrano, RN) Datetime: 04/27/2016 14:59 Procedure Verify: Correct Patient Identity; Correct Side and Site are Marked; Accurate Procedure Consent Form; Agreement on Procedure to be Done; Correct Patient Position; Relevant Images and Results are Properly Labeled and Displayed; Addressed Need to Administer Antibiotics or Fluids for Irrigation; Safety Precautions Based on Patient History or Medication Use (Danuta Vitrano, RN) Anesthesia Plans: Epidural (Danutaean Ford, RN) Anesthesia Comments: Dr. Franco called for epidural (Danuta Vitrano, RN) Datetime: 04/27/2016 14:45 Monitor Mode: External (Danuta Vitrano, RN) Frequency (min): 1-4 (Danuta Vitrano, RN) Quality: Mild/Moderate (Danuta Vitrano, RN) Duration (sec): 50-70 (Danuta Vitrano, RN) Duration Criteria: Less than Two 120 Second Contractions (Danuta Vitrano, RN) Pattern: Normal: <= 5 Contractions in 10 Minutes (Danuta Vitrano, RN) Resting Tone (Palpate): Relaxed (Danuta Vitrano, RN) Monitor Mode: External US (Danuta Vitrano, RN) FHR Baseline Rate : 135 (Danuta Vitrano, RN) Variability: Moderate 6-25 bpm (Danuta Vitrano, RN) Accelerations: 15X15 (Danuta Vitrano, RN) Decelerations: None (Danuta Vitrano, RN) Pitocin (milliunit): Pitocin Remains (milliunits) @ 14 (Danuta Vitrano, RN) Datetime: 04/27/2016 14:40 Pain Assessment Comments: Requesting epidural; new warm pack provided, pt remains on rocking chair at this time. (Danuta Ford RN) IV/Blood Work: IV Bolus Started; New IV Bag Hung (Danuta Ford RN) I/O Interventions: Up to BR (Danuta Ford RN) Procedure Verify: Correct Patient Identity; Correct Side and Site are Marked; Accurate Procedure Consent Form; Agreement on Procedure to be Done; Relevant Images and Results are Properly Labeled and Displayed; Addressed Need to Administer Antibiotics or Fluids for Irrigation; Safety Precautions Based on Patient History or Medication Use (Danuta Ford RN) Anesthesia Plans: Epidural (Danuta Ford RN) Anesthesia Comments: Pt requesting epidural (Danuta Ford RN) Communication Comments: Renu Hernandez CNM notified of pt request for epidural, no SVE needed; may start IV bolus. (Danuta Ford RN) LaborFlag: Labor (QS system process) Datetime: 04/27/2016 14:32 NBP Sys/Lizzie/Mean (mmHg): 127 (QS system process) : 74 (QS system process) : 95 (QS system process) Pulse: 65 (QS system process) Respirations: 16 (Danuta Ford RN) LaborFlag: Labor (QS system process) Datetime: 04/27/2016 14:30 Monitor Mode: External (Danuta Vitrano, RN) Frequency (min): 1-3 (Danuta Vitrano, RN) Quality: Mild/Moderate (Danuta Vitrano, RN) Duration (sec): 40-90 (Danuta Vitrano, RN) Duration Criteria: Less than Two 120 Second Contractions (Danuta Vitrano, RN) Pattern: Normal: <= 5 Contractions in 10 Minutes (Danuta Vitrano, RN) Resting Tone (Palpate): Relaxed (Danuta Vitrano, RN) Monitor Mode: External US (Danuta Vitrano, RN) FHR Baseline Rate : 135 (Danuta Vitrano, RN) Variability: Moderate 6-25 bpm (Danuta Vitrano, RN) Accelerations: 10X10 (Danuta Vitrano, RN) Decelerations: None (Danuta Vitrano, RN) Pitocin (milliunit): Pitocin Remains (milliunits) @ 14 (Danuta Vitrano, RN) Pitocin (milliunit): Pitocin Increased to (milliunits) @ 14 (Danuta Vitrano, RN) Datetime: 04/27/2016 14:15 Monitor Mode: External (Danuta Vitrano, RN) Frequency (min): 1-3 (Danuta Vitrano, RN) Quality: Mild/Moderate (Danuta Vitrano, RN) Duration (sec): 50-70 (Danuta Vitrano, RN) Duration Criteria: Less than Two 120 Second Contractions (Danuta Vitrano, RN) Pattern: Normal: <= 5 Contractions in 10 Minutes (Danuta Vitrano, RN) Resting Tone (Palpate): Relaxed (Danuta Vitrano, RN) Monitor Mode: External US (Danuta Vitrano, RN) FHR Baseline Rate : 140 (Danuta Vitrano, RN) Variability: Moderate 6-25 bpm (Danuta Vitrano, RN) Accelerations: 15X15 (Danuta Vitrano, RN) Decelerations: None (Danuta Vitrano, RN) Pitocin (milliunit): Pitocin Remains (milliunits) @ 14 (Danuta Vitrano, RN) Datetime: 04/27/2016 14:05 Pain Assessment Comments: New warm pack provided. Pt remains in rocking chair. (Danuta Ford, RN) Patient Care Comments: Pt stable, denies further needs. (Danutaean Ford, RN) LaborFlag: Labor (QS system process) Datetime: 04/27/2016 14:00 NBP Sys/Lizzie/Mean (mmHg): 118 (QS system process) : 73 (QS system process) : 91 (QS system process) Pulse: 66 (QS system process) Respirations: 16 (Danuta Vitrano, RN) Monitor Mode: External; Palpation (Danuta Vitrano, RN) Frequency (min): 1.5-2 (Danuta Vitrano, RN) Quality: Mild/Moderate (Danuta Vitrano, RN) Duration (sec): 50-80 (Danuta Vitrano, RN) Duration Criteria: Less than Two 120 Second Contractions (Danuta Vitrano, RN) Pattern: Normal: <= 5 Contractions in 10 Minutes (Danuta Vitrano, RN) Resting Tone (Palpate): Relaxed (Danuta Vitrano, RN) Monitor Mode: External US (Danuta Vitrano, RN) FHR Baseline Rate : 135 (Danuta Vitrano, RN) Variability: Minimal - Undetectable to <=5 bpm (Danuta Vitrano, RN) Accelerations: None (Danuta Vitrano, RN) Decelerations: None (Danuta Vitrano, RN) Pitocin (milliunit): Pitocin Remains (milliunits) @ 12 (Danuta Vitrano, RN) LaborFlag: Labor (QS system process) Datetime: 04/27/2016 13:45 Monitor Mode: External (Danuta Vitrano, RN) Frequency (min): 1-2 (Danuta Vitrano, RN) Quality: Mild/Moderate (Danuta Vitrano, RN) Duration (sec): 50-80 (Danuta Vitrano, RN) Duration Criteria: Less than Two 120 Second Contractions (Danuta Vitrano, RN) Pattern: Normal: <= 5 Contractions in 10 Minutes (Danuta Vitrano, RN) Resting Tone (Palpate): Relaxed (Danuta Vitrano, RN) Monitor Mode: External US (Danuta Vitrano, RN) FHR Baseline Rate : 140 (Danuta Vitrano, RN) Variability: Minimal - Undetectable to <=5 bpm (Danuta Vitrano, RN) Accelerations: 15X15 (Danuta Vitrano, RN) Decelerations: None (Danuta Vitrano, RN) Pitocin (milliunit): Pitocin Remains (milliunits) @ 12 (Danuta Vitrano, RN) Datetime: 04/27/2016 13:31 NBP Sys/Lizzie/Mean (mmHg): 120 (QS system process) : 71 (QS system process) : 91 (QS system process) Pulse: 68 (QS system process) Respirations: 16 (Danuta Vitrano, RN) LaborFlag: Labor (QS system process) Datetime: 04/27/2016 13:30 Monitor Mode: External (Danuta Vitrano, RN) Frequency (min): 1-4 (Danuta Vitrano, RN) Quality: Mild/Moderate (Danuta Vitrano, RN) Duration (sec): 50-90 (Danuta Vitrano, RN) Duration Criteria: Less than Two 120 Second Contractions (Danuta Vitrano, RN) Pattern: Normal: <= 5 Contractions in 10 Minutes (Danuta Vitrano, RN) Resting Tone (Palpate): Relaxed (Danuta Vitrano, RN) Monitor Mode: External US (Danuta Vitrano, RN) FHR Baseline Rate : 135 (Danuta Vitrano, RN) Variability: Moderate 6-25 bpm (Danuta Vitrano, RN) Accelerations: 15X15 (Danuta Vitrano, RN) Decelerations: None (Danuta Vitrano, RN) Pitocin (milliunit): Pitocin Increased to (milliunits) @ 12 (Danuta Vitrano, RN) Datetime: 04/27/2016 13:15 Monitor Mode: External (Danuta Vitrano, RN) Frequency (min): 1-4 (Danuta Vitrano, RN) Quality: Mild/Moderate (Danuta Vitrano, RN) Duration (sec): 50-90 (Danuta Vitrano, RN) Duration Criteria: Less than Two 120 Second Contractions (Danuta Vitrano, RN) Pattern: Normal: <= 5 Contractions in 10 Minutes (Danuta Vitrano, RN) Resting Tone (Palpate): Relaxed (Danuta Vitrano, RN) Monitor Mode: External US (Danuta Vitrano, RN) FHR Baseline Rate : 140 (Danuta Vitrano, RN) Variability: Minimal - Undetectable to <=5 bpm (Danuta Vitrano, RN) Accelerations: 10X10 (Danuta Vitrano, RN) Decelerations: None (Danuta Vitrano, RN) Pitocin (milliunit): Pitocin Remains (milliunits) @ 10 (Danuta Vitrano, RN) Datetime: 04/27/2016 13:00 NBP Sys/Lizzie/Mean (mmHg): 112 (QS system process) : 73 (QS system process) : 87 (QS system process) Pulse: 79 (QS system process) Respirations: 16 (Danuta Vitrano, RN) Monitor Mode: External; Palpation (Danuta Vitrano, RN) Frequency (min): 1-3 (Danuta Vitrano, RN) Quality: Mild/Moderate (Danuta Vitrano, RN) Duration (sec): 50-90 (Danuta Vitrano, RN) Duration Criteria: Less than Two 120 Second Contractions (Danuta Vitrano, RN) Pattern: Normal: <= 5 Contractions in 10 Minutes (Danuta Vitrano, RN) Resting Tone (Palpate): Relaxed (Danuta Vitrano, RN) Monitor Mode: External US (Danuta Vitrano, RN) FHR Baseline Rate : 140 (Danuta Vitrano, RN) Variability: Moderate 6-25 bpm (Danuta Vitrano, RN) Accelerations: 10X10 (Danuta Vitrano, RN) Decelerations: None (Danuta Vitrano, RN) Pitocin (milliunit): Pitocin Increased to (milliunits) @ 10 (Danuta Vitrano, RN) I/O Interventions: Clear Liquids Given (Danuta Vitrano, RN) Patient Care Comments: Denies needs (Danuta Vitrano, RN) LaborFlag: Labor (QS system process) Datetime: 04/27/2016 12:49 Pain Assessment Comments: New warm pack provided, pt denies further needs (Danuta Vitrano, RN) LaborFlag: Labor (QS system process) Datetime: 04/27/2016 12:45 Monitor Mode: External (Danuta Vitrano, RN) Frequency (min): 1-3.5 (Danuta Vitrano, RN) Quality: Mild/Moderate (Danuta Vitrano, RN) Duration (sec): 70-90 (Danuta Vitrano, RN) Duration Criteria: Less than Two 120 Second Contractions (Danuta Vitrano, RN) Pattern: Normal: <= 5 Contractions in 10 Minutes (Danuta Vitrano, RN) Resting Tone (Palpate): Relaxed (Danuta Vitrano, RN) Monitor Mode: External US (Danuta Vitrano, RN) FHR Baseline Rate : 140 (Danuta Vitrano, RN) Variability: Moderate 6-25 bpm (Danuta Vitrano, RN) Accelerations: 10X10 (Danuta Vitrano, RN) Decelerations: None (Danuta Vitrano, RN) Pitocin (milliunit): Pitocin Remains (milliunits) @ 8 (Danuta Vitrano, RN) Datetime: 04/27/2016 12:31 NBP Sys/Lizzie/Mean (mmHg): 119 (QS system process) : 71 (QS system process) : 87 (QS system process) Pulse: 70 (QS system process) Respirations: 17 (Danuta Vitrano, RN) LaborFlag: Labor (QS system process) Datetime: 04/27/2016 12:30 Monitor Mode: External (Danuta Vitrano, RN) Frequency (min): 1-3 (Danuta Vitrano, RN) Quality: Mild/Moderate (Danuta Vitrano, RN) Duration (sec): 50-90 (Danuta Vitrano, RN) Duration Criteria: Less than Two 120 Second Contractions (Danuta Vitrano, RN) Pattern: Normal: <= 5 Contractions in 10 Minutes (Danuta Vitrano, RN) Resting Tone (Palpate): Relaxed (Danuta Vitrano, RN) Monitor Mode: External US (Danuta Vitrano, RN) FHR Baseline Rate : 145 (Danuta Vitrano, RN) Variability: Minimal - Undetectable to <=5 bpm (Danuta Vitrano, RN) Accelerations: Prolonged (Danuta Vitrano, RN) Decelerations: None (Danuta Vitrano, RN) Pitocin (milliunit): Pitocin Increased to (milliunits) @ 8 (Danuta Vitrano, RN) Datetime: 04/27/2016 12:15 Monitor Mode: External (Danuta Vitrano, RN) Frequency (min): 1-4 (Danuta Vitrano, RN) Quality: Mild/Moderate (Danuta Vitrano, RN) Duration (sec): 50-100 (Danuta Vitrano, RN) Duration Criteria: Less than Two 120 Second Contractions (Danuta Vitrano, RN) Pattern: Normal: <= 5 Contractions in 10 Minutes (Danuta Vitrano, RN) Resting Tone (Palpate): Relaxed (Danuta Vitrano, RN) Monitor Mode: External US (Danuta Vitrano, RN) FHR Baseline Rate : 140 (Danuta Vitrano, RN) Variability: Moderate 6-25 bpm (Danuta Vitrano, RN) Accelerations: 15X15 (Danuta Vitrano, RN) Decelerations: None (Danuta Vitrano, RN) Pain Assessment Comments: States cramping is relieved by warm pack (Danuta Vitrano, RN) Pitocin (milliunit): Pitocin Increased to (milliunits) @ 6 (Danuta Vitrano, RN) LaborFlag: Labor (QS system process) Datetime: 04/27/2016 12:04 Pain Assessment Comments: Warm pack provided to low back for cramping, pt up to rocking chair. FOB at bedside, denies needs. (Danuta Jeremiahano, RN) Comfort Measures: Hot/Cold Pack; Rocking Chair (Danuta FERNANDA Ford) LaborFlag: Labor (QS system process) Datetime: 04/27/2016 12:01 I/O Interventions: Up to BR (Danuta Vitrano, RN) Datetime: 04/27/2016 12:00 Monitor Mode: External; Palpation (Danuta Vitrano, RN) Frequency (min): 1-5 (Danuta Vitrano, RN) Quality: Mild/Moderate (Danuta Vitrano, RN) Duration (sec): 50-80 (Danuta Vitrano, RN) Duration Criteria: Less than Two 120 Second Contractions (Danuta Vitrano, RN) Pattern: Normal: <= 5 Contractions in 10 Minutes (Danuta Vitrano, RN) Resting Tone (Palpate): Relaxed (Danuta Vitrano, RN) Monitor Mode: External US (Danuta Vitrano, RN) FHR Baseline Rate : 140 (Danuta Vitrano, RN) Variability: Moderate 6-25 bpm (Danuta Vitrano, RN) Accelerations: 15X15 (Danuta Vitrano, RN) Decelerations: None (Danuta Vitrano, RN) Pitocin (milliunit): Pitocin Increased to (milliunits) @ 4 (Danuta Vitrano, RN) Datetime: 04/27/2016 11:45 Monitor Mode: External (Danuta Vitrano, RN) Frequency (min): 1-4 (Danuta Vitrano, RN) Quality: Mild (Danuta Vitrano, RN) Duration (sec): 50-90 (Danuta Vitrano, RN) Duration Criteria: Less than Two 120 Second Contractions (Danuta Vitrano, RN) Pattern: Normal: <= 5 Contractions in 10 Minutes (Danuta Vitrano, RN) Resting Tone (Palpate): Relaxed (Danuta Vitrano, RN) Monitor Mode: External US (Danuta Ford, RN) FHR Baseline Rate : 140 (Danuta Jeremiahano, RN) Variability: Moderate 6-25 bpm (Danuta Vitrano, RN) Accelerations: 15X15 (Danuta Jeremiahano, RN) Decelerations: None (Danuta Jeremiahano, RN) Pitocin (milliunit): Pitocin Remains (milliunits) @ 2 (Danuta Liliana, RN) Datetime: 04/27/2016 11:35 Pitocin (milliunit): Pitocin Started (milliunits) @ 2; Pitocin 20 Units in 1000ml NS (Danuta Ford RN) Antibiotics: Start Antibiotics; Penicillin IV (Units) @ 5,000,000 (Danuta Ford RN) Instructional Method: Verbal; Patient Instructed; Family/Support Person Instructed; Verbalized Understanding (Danuta Ford RN) Plan of Care: Plan of Care Discussed (Danuta Ford RN) Labor/Induction: Labor Stages; Induction; Activity (Danuta Ford, RN) Pain Management: IV Narcotics; Epidural; Comfort Measures (Danuta Ford, FERNANDA) Medications: Antibiotics; Pitocin (Danuta Ford RN) Datetime: 04/27/2016 11:30 Temperature (F): 97.8 (Danuta Vitrano, RN) Temperature (C): 36.6 (QS system process) Temperature Route: Oral (Danuta Vitrano, RN) Monitor Mode: External; Palpation (Danuta Vitrano, RN) Frequency (min): 2-5 (Danuta Vitrano, RN) Quality: Mild (Danuta Vitrano, RN) Duration (sec): 60-120 (Danuta Vitrano, RN) Duration Criteria: Less than Two 120 Second Contractions (Danuta Vitrano, RN) Pattern: Normal: <= 5 Contractions in 10 Minutes (Danuta Vitrano, RN) Resting Tone (Palpate): Relaxed (Danuta Vitrano, RN) Monitor Mode: External US (Danuta Vitrano, RN) FHR Baseline Rate : 140 (Danuta Vitrano, RN) Variability: Moderate 6-25 bpm (Danuta Vitrano, RN) Accelerations: 15X15 (Danuta Vitrano, RN) Decelerations: None (Danuta Vitrano, RN) LaborFlag: Labor (QS system process) Datetime: 04/27/2016 11:16 Dilatation (cm): 3.0 (Danuta Vitrano, RN) Effacement (%): 50 (Danuta Vitrano, RN) Station: -2 (Danuta Vitrano, RN) Exam by: Renu Hernandez CNM (Daunta Vitrano, RN) Communication Comments: Orders received to start Pitocin, epidural PRN (Danuta Vitrano, RN) Datetime: 04/27/2016 11:14 Communication Comments: Renu Hernandez CNM at bedside to assess pt (Danuta Vitrano, RN) Datetime: 04/27/2016 11:10 Level of Consciousness: Fully Conscious (Danuta Vitrano, RN) DTR's/Clonus: DTRs 2+; No Clonus (Danuta Vitrano, RN) Headache: Denies (Danuta Vitrano, RN) Breath Sounds, Left: Clear and Equal (Danuta Vitrano, RN) Breath Sounds, Right: Clear and Equal (Danuta Vitrano, RN) Nausea/Vomiting: Denies (Danuta Vitrano, RN) RUQ Epigastric Pain: Denies (Danuta Vitrano, RN) Communication Comments: Report received from Mita Flores CNM (Danuta Vitrano, RN) Datetime: 04/27/2016 10:15 NBP Sys/Lizzie/Mean (mmHg): 122 (QS system process) : 71 (QS system process) : 89 (QS system process) Pulse: 75 (QS system process) Respirations: 16 (Danuta Vitrano, RN) LaborFlag: Labor (QS system process) Datetime: 04/27/2016 10:13 Comments: Monitors applied to abdomen (Eva Mark, RNC) Datetime: 04/27/2016 08:45 Vaginal Exam Comments: Cervidil removed intact per pt. (Evache Flores, RNC) Datetime: 04/27/2016 08:37 Comments: Monitors removed from abdomen, pt off monitors per MD order x1 hour. (Eva Flores, RNC) Datetime: 04/27/2016 08:36 Temperature (F): 98.2 (Eva Flores, RNC) Temperature (C): 36.8 (QS system process) LaborFlag: Labor (QS system process) Datetime: 04/27/2016 08:31 Level of Consciousness: Fully Conscious (Eva Flores RNC) DTR's/Clonus: DTRs 2+; No Clonus (Eva Mark, RNC) Headache: Denies (Eva Mark, RNC) Breath Sounds, Left: Clear and Equal (Eva Mark, RNC) Breath Sounds, Right: Clear and Equal (Eva Mark, RNC) Nausea/Vomiting: Denies (Eva Mark, RNC) RUQ Epigastric Pain: Denies (Eva Mark, RNC) Datetime: 04/27/2016 08:30 Monitor Mode: External; Palpation (Eva Mark, RNC) Frequency (min): 3-5 (Eva Mark, RNC) Quality: Mild/Moderate (Eva Mark, RNC) Duration (sec): 90-120 (Eva Mark, RNC) Duration Criteria: Less than Two 120 Second Contractions (Eva Mark, RNC) Pattern: Normal: <= 5 Contractions in 10 Minutes (Eva Mark, RNC) Resting Tone (Palpate): Relaxed (Eva Mark, RNC) Monitor Mode: External US (Eva Mark, RNC) FHR Baseline Rate : 140 (Eva Mark, RNC) Variability: Moderate 6-25 bpm (Eva Mark, RNC) Accelerations: 15X15 (Eva Mark, RNC) Decelerations: None (Eva Mark, RNC) Datetime: 04/27/2016 08:00 Stage of : Labor (ROB Richardson) Monitor Mode: External; Palpation (Dallin Queenie, RN) Frequency (min): 2.5-7 (Dallin Queenie, RN) Quality: Mild/Moderate (Dallin Queenie, RN) Duration (sec): 70-110 (Dallin Queenie, RN) Resting Tone (Palpate): Relaxed (Dallin Queenie, RN) Monitor Mode: External US (Dallin Queenie, RN) FHR Baseline Rate : 135 (Dallin Queenie, RN) FHR Baseline Changes: No Baseline Change (Dallin Queenie, RN) Variability: Moderate 6-25 bpm (Dallin Queenie, RN) Accelerations: 15X15 (Dallin Queenie, RN) Decelerations: None (Dallin Queenie, RN) Communication: RN Reviewed Strip (Dallin Queenie, RN) Datetime: 04/27/2016 07:30 Monitor Mode: External; Palpation (Dallin Queenie, RN) Frequency (min): 2-5 (Dallin Queenie, RN) Quality: Mild/Moderate (Dallin Queenie, RN) Duration (sec): 70-110 (Dallin Queenie, RN) Resting Tone (Palpate): Relaxed (Dallin Queenie, RN) Monitor Mode: External US (Dallin Jerome RN) FHR Baseline Rate : 135 (Dallin Jerome RN) Variability: Moderate 6-25 bpm (Dallin Jerome RN) Accelerations: 15X15 (Dallin Jerome RN) Decelerations: None (Dallin Jerome RN) Communication: RN Reviewed Strip (Dallin Jerome RN) Datetime: 04/26/2016 21:41 Temperature (C): 36.8 (QS system process) LaborFlag: Antepartum (QS system process) Datetime: 04/26/2016 19:15 Membranes Ruptured Date/Time: 04/27/2016 16:00 (Danuta Ford RN) Amniotic Fluid Odor: Normal (Danuta Ford RN)
--- NOTE | 2016-04-27 20:24 | Delivery Summary ---
Del Sum A-C Datetime Report Generated by CPN: 04/27/2016 20:23 ADMISSION DATA Chief Complaint: Scheduled Induction of Labor Indication for Induction: IUGR Admission Impression: Term, Intrauterine ; Induction of Labor Admit Provider Comments: 37+6 presents for induction of labor for iugr <3%. Cervidil tonight. gbs positive for pcn DELIVERY PERSONNEL Delivery Doctor:: Jeff Hines MD Labor and Delivery Nurse:: Danuta Ford RN Nursery Nurse:: Ashley Bragg RN MATERNAL INFORMATION Delivery Anesthesia: Epidural Medications After Delivery: Pitocin Bolus-Please Comment Meds After Delivery Comment: Pitocin 20 units in 1000 mL NS bolusing after delivery of placenta Estimated Blood Loss (ml): 200 Maternal Complications: Precipitous Labor (<3hrs) LABOR SUMMARY EDC: 05/11/2016 00:00 No. Babies in Womb: 1 Attempted: No Labor Anesthesia: Epidural LABOR INFORMATION Reason for Induction: Intrauterine Growth Retardation Onset of Labor: 04/27/2016 16:00 Complete Dilatation: 04/27/2016 17:47 Cervical Ripening Agents: Cervidil Oxytocin: Induction Group B Beta Strep: Positive Antibiotics # of Doses: 2 Antibiotics Time of Last Dose: 1528 Name of Antibiotic Given: Penicillin Steroids Given: None Reason Steroids Not Administered: Not Applicable MEMBRANES Membranes Rupture Method: Artificial Rupture of Membranes: 04/27/2016 16:00 Length of Rupture (hr): 2.75 Amniotic Fluid Color: Clear Amniotic Fluid Amount: Moderate Amniotic Fluid Odor: Normal STAGES OF LABOR Stage 1 hr: 1 Stage 1 min: 47 Stage 2 hr: 0 Stage 2 min: 58 Stage 3 hr: 0 Stage 3 min: 6 Total Time in Labor hr: 2 Total Time in Labor min: 51 VAGINAL DELIVERY Episiotomy: None Laceration Extension: Second Degree Laceration Type: Vaginal Laceration Repair: Yes Laceration Repair Note: repair with 3-0 chromic suture Sponge Count Correct: N/A Sharps Count Correct: N/A CSECTION DELIVERY Primary Indication: N/A Secondary Indication: N/A CSection Incidence: N/A Labor: N/A Elective: N/A CSection Incision: N/A BABY A INFORMATION Infant Delivery Date/Time: 04/27/2016 18:45 Method of Delivery: Vaginal Born in Route : No : N/A Forceps: N/A Vacuum Extraction: N/A Shoulder Dystocia : No PRESENTATION/POSITION BABY A Presentation: Cephalic Cephalic Presentation: Vertex Vertex Position: Right Occipital Anterior Breech Presentation: N/A PLACENTA INFORMATION BABY A Placenta Delivery Time : 04/27/2016 18:51 Placenta Method of Delivery: Spontaneous Placenta Status: Delivered SCORES BABY A Heart Rate 1 min: >100 bpm Resp Effort 1 min: Good Cry Reflex Irritability 1 min: Cough or Sneeze or Pulls Away Muscle Tone 1 min: Active Motion Color 1 min: Blue/Pale Resuscitation Effort 1 min: Tactile Stimulation SCORE 1 MIN: 8 Heart Rate 5 min: >100 bpm Resp Effort 5 min: Good Cry Reflex Irritability 5 min: Cough or Sneeze or Pulls Away Muscle Tone 5 min: Active Motion Color 5 min: Body Powell, Extremities Blue Resuscitation Effort 5 min: N/A SCORE 5 MIN: 9 INFORMATION BABY A Gestational Age at Delivery: 38.0 Gestational Status: Early Term- 37- 38.6 Weeks Infant Outcome : Liveborn Condition : Stable Infant Sex: Female IDENTIFICATION BABY A Verification Date/Time: 04/27/2016 18:58 ID Band Number: [id number] Mother's Name Verified: Yes RN Verifying Infant: MTremayne Duenas, RN Additional Verifying Personnel: DTremayne Dacostase WEIGHT/LENGTH BABY A Birthweight (gm): 2050 Infant Weight (lb): 4 Weight (oz): 8 Length (in): 17.00 Infant Length (cm): 43.18 CORD INFORMATION BABY A No. Cord Vessels: 3 Nuchal Cord : Around Neck x1, Loose Cord Blood Taken: Yes-For Eval (Mom's Blood Type - or O+) Infant Suction: None ASSESSMENT BABY A Complications: Other Complications- Other: IUGR Physical Findings at Delivery: Within Normal Limits Respirations: Appears Normal Skin to Skin: Yes Skin to Skin Time (min): 6 International Relations Professor/ALS Called : No Infant Care By: Renu Bragg RN Transferred To: [facility] BABY B INFORMATION : N/A SIGNATURES Signature: with User ID: [email or web address]
[2016-04-27] MEDS ORDERED: IBUPROFEN 800 MG TABLET ONE (20:34)
--- NOTE | 2016-04-27 21:32 | Admission Physical ---
Datetime Report Generated by CPN: 04/27/2016 21:32 CURRENT ADMISSION Hx Assessment: The History has been Reviewed and is Current Chief Complaint: Scheduled Induction of Labor Indication for Induction: IUGR Admit Plan: Admit to Unit; Initiate Labor Induction Protocol ALLERGIES Medication Allergies: No Medication Allergies: No Known Allergies (12/30/2015) Latex: No Latex Allergies OBSTETRICAL HISTORY EDC: 05/11/2016 00:00 : 1 Para: 0 Term: 0 : 0 SAB: 0 IAB: 0 Ectopic: 0 Livin Cesareans: 0 VBACs: 0 Multiple Births: 0 Gestational Diabetes: No Rh Sensitization: No Incompetent Cervix: No ANITA: No Infertility: No ART Treatment: No Uterine Anomaly: No IUGR: No Hx Previous C/S: No Macrosomia: No Hx Loss/Stillborn: No PIH: No Hx : No Placenta Previa/Abruption: No Depression/PP Depression: No PTL/PROM: No Post Hemorrhage: No Current Procedures: Ultrasound; NST Obstetrical History Comments: G1-Current SEE RECORDS Alcohol: No Marijuana : No Cocaine: No Other Illicit Drugs: No Cigarettes: Never Smoker. [id number] MEDICAL HISTORY Diabetes: No Blood Transfusion: No Pulmonary Disease (Asthma, TB): No Breast Disease: No Hypertension: No Film Masker Surgery: No Heart Disease: No Hosp/Surgery: No Autoimmune Disorder: No Anesthetic Complications: No Kidney Disease: No Abnormal Pap Smear: No Neuro/Epilepsy: No Psychiatric Disorders: No Other Medical Diseases: No Hepatitis/Liver Disease: No Significant Family History: No Varicosities/Phlebitis: No Trauma/Violence : No Thyroid Dysfunction: No INFECTIOUS HISTORY Gonorrhea: No Genital Herpes: No Chlamydia: No Tuberculosis: No Syphilis: No Hepatitis: No HIV/AIDS Exposure: No Rash or Viral Illness: No HPV: No PHYSICAL EXAM General: Normal HEENT: Deferred Neurologic: Deferred Thyroid: Deferred Heart: Normal Lungs: Normal Breast: Deferred Back: Deferred Abdomen: Normal Genitourinary Exam: Normal Extremities: Normal DTRs: Normal Pelvic Type: Adequate Vital Signs: Reviewed; Within Normal Limits VAGINAL EXAM Dilatation: 4 Dilatation: 3 Effacement: 75 Effacement: 50 Station: -2 Station: -2 Contraction Comments: q1-6 MEMBRANES Membranes: Ruptured Membranes: Intact Membranes: Intact Amniotic Fluid Color: Clear FETUS A EGA: 38.0 FHR- Baseline: 120 Variability: Moderate 6-25bpm Accelerations: 15X15 Decelerations: None FHR Category: Category I Admit Comment: 37+6 presents for induction of labor for iugr <3%. Cervidil tonight. gbs positive for pcn PLANS FOR LABOR AND DELIVERY Labor and Delivery: None Pain Management: Natural; Epidural Feeding Preference: Breast Benefit of Breast Feed Discussed: Yes Circumcision: N/A INFORMED CONSENT Informed Consent Obtained: Vaginal Delivery; Section Delivery; Induction of Labor; Risks, Benefits and Alternatives Discussed Informed Consent Obtained: Vaginal Delivery; Induction of Labor; Risks, Benefits and Alternatives Discussed Signature: with User ID: [email or web address]
[2016-04-27] MEDS: FAMOTIDINE 20 MG TABLET PO SCH (22:35)
[2016-04-28] MEDS: IBUPROFEN 800 MG TABLET PO SCH ×4 (02:26→21:48)
[2016-04-28] MEDS: ZOLPIDEM TARTRATE 5 MG TABLET PO SCH ×2 (02:26→21:48)
--- NOTE | 2016-04-28 07:01 | L&D Flow Sheet ---
LD Flowsheet Datetime Report Generated by CPN: 04/28/2016 07:00 Datetime: 04/27/2016 21:15 Stage of : Recovery (Danuta Vitrano, RN) Pain Scale: 0 (Danuta Vitrano, RN) Pain Presence: None/Denies (Danuta Vitrano, RN) Pain Type: N/A (Danuta Vitrano, RN) Datetime: 04/27/2016 20:45 Stage of : Recovery (Danuta Vitrano, RN) Pain Scale: 0 (Danuta Vitrano, RN) Pain Presence: None/Denies (Danuta Vitrano, RN) Pain Type: N/A (Danuta Vitrano, RN) Datetime: 04/27/2016 20:34 NBP Sys/Lizzie/Mean (mmHg): 128 (QS system process) : 83 (QS system process) : 100 (QS system process) Pulse: 93 (QS system process) Respirations: 16 (Danuta Vitrano, RN) Datetime: 04/27/2016 20:30 Stage of : Recovery (Danuta Vitrano, RN) Pain Scale: 0 (Danuta Vitrano, RN) Pain Presence: None/Denies (Danuta Vitrano, RN) Pain Type: N/A (Danuta Vitrano, RN) Datetime: 04/27/2016 20:19 NBP Sys/Lizzie/Mean (mmHg): 127 (QS system process) : 79 (QS system process) : 97 (QS system process) Pulse: 87 (QS system process) Respirations: 16 (Danuta Vitrano, RN) Datetime: 04/27/2016 20:15 Stage of : Recovery (Danuta Vitrano, RN) Pain Scale: 0 (Danuta Vitrano, RN) Pain Presence: None/Denies (Danuta Vitrano, RN) Pain Type: N/A (Danuta Vitrano, RN) Datetime: 04/27/2016 20:04 NBP Sys/Lizzie/Mean (mmHg): 126 (QS system process) : 80 (QS system process) : 98 (QS system process) Pulse: 68 (QS system process) Respirations: 16 (Danuta Vitrano, RN) Datetime: 04/27/2016 20:00 Stage of : Recovery (Danuta Vitrano, RN) Pain Scale: 0 (Danuta Vitrano, RN) Pain Presence: None/Denies (Danuta Vitrano, RN) Pain Type: N/A (Danuta Vitrano, RN) Datetime: 04/27/2016 19:49 NBP Sys/Lizzie/Mean (mmHg): 129 (QS system process) : 81 (QS system process) : 100 (QS system process) Pulse: 65 (QS system process) Respirations: 16 (Danuta Vitrano, RN) Datetime: 04/27/2016 19:45 Stage of : Recovery (Danuta Vitrano, RN) Pain Scale: 0 (Danuta Vitrano, RN) Pain Presence: None/Denies (Danuta Vitrano, RN) Pain Type: N/A (Danuta Vitrano, RN) Datetime: 04/27/2016 19:34 NBP Sys/Lizzie/Mean (mmHg): 132 (QS system process) : 86 (QS system process) : 104 (QS system process) Pulse: 76 (QS system process) Respirations: 16 (Danuta Vitrano, RN) Datetime: 04/27/2016 19:30 Stage of : Recovery (Danuta Vitrano, RN) Pain Scale: 0 (Danuta Vitrano, RN) Pain Presence: None/Denies (Danuta Vitrano, RN) Pain Type: N/A (Danuta Vitrano, RN) Datetime: 04/27/2016 19:20 NBP Sys/Lizzie/Mean (mmHg): 130 (QS system process) : 81 (QS system process) : 98 (QS system process) Pulse: 78 (QS system process) Respirations: 16 (Danuta Vitrano, RN) Datetime: 04/27/2016 19:15 Stage of : Recovery (Danuta Vitrano, RN) Pain Scale: 0 (Danuta Vitrano, RN) Pain Presence: None/Denies (Danuta Vitrano, RN) Pain Type: N/A (Danuta Vitrano, RN) Datetime: 04/27/2016 19:04 NBP Sys/Lizzie/Mean (mmHg): 136 (QS system process) : 60 (QS system process) : 87 (QS system process) Pulse: 78 (QS system process) Respirations: 16 (Danuta Ford RN) Datetime: 04/27/2016 19:00 Stage of : Recovery (Danuta Ford RN) Pain Scale: 0 (Danuta Ford RN) Pain Presence: None/Denies (Danuta Ford RN) Pain Type: N/A (Danuta Ford RN)
[2016-04-28 07:42] LABS: HEMATOCRIT 31.1 % (36.0-47.0); HEMOGLOBIN 10.9 g/dL (12.0-15.5); HGB HCT DIFFERENCE 1.6; MEAN CORPUSCULAR HEMOGLOBIN 30.6 pg (27.0-33.4); MEAN CORPUSCULAR HGB CONC 34.9 g/dL (32.0-36.0); MEAN CORPUSCULAR VOLUME 88 fl (80-97); RED BLOOD COUNT 3.55 10^6/uL (3.72-5.28); RED CELL DISTRIBUTION WIDTH 12.5 % (11.5-14.0); WHITE BLOOD COUNT 12.7 10^3/uL (4.0-10.5)
--- NOTE | 2016-04-28 09:28 | PDOC PROGRESS REPORT ---
Subjective-OB Subjective: Post Delivery Day: 1 25 year old. Denies any needs at this time, states lochia is stable, pain is well controlled, voiding without difficulty. Physical Exam (OB) Vital Signs: Temp Pulse Resp BP Pulse Ox 98.2 F 60 15 132/75 H 100 04/28/16 08:05 04/28/16 08:05 04/28/16 08:05 04/28/16 08:05 04/28/16 08:05 Intake & Output 04/27/16 04/28/16 04/29/16 06:59 06:59 06:59 Weight 70.3 kg - PIH/Pre-Eclampsia Clonus: Negative Headache: Absent Epigastric Pain: No Visual Changes: No - Lochia Lochia Amount: Small 10-25 ml Lochia Color: Rubra/Red - Abdomen Description: Soft, Round Fundal Description: Firm Fundal Height: u/u - u/2 Objective-Diagnostic Laboratory: 04/28/16 07:12 04/28/16 07:12 WBC 12.7 H RBC 3.55 L Hgb 10.9 L Hct 31.1 L MCV 88 MCH 30.6 MCHC 34.9 RDW 12.5 Plt Count 151 Assessment and Plan(PN) - Assessment and Plan (1) Vaginal delivery Is this a current diagnosis for this admission?: YesPlan: routine pp care (2) Acute blood loss anemia Is this a current diagnosis for this admission?: YesPlan: ferrous sulfate increase dietary iron - Time Spent with Patient Time with patient: Less than 15 minutes Critical Time spent with patient: Less than 15 minutes Medications reviewed and adjusted accordingly: Yes - Disposition Anticipated Discharge: Home Within: within 24 hours
[2016-04-28] MEDS: FAMOTIDINE 20 MG TABLET PO SCH ×2 (10:27→21:48)
[2016-04-28] MEDS: SENNOSIDES/DOCUSATE 8.6-50 MG 1 EACH TABLET PO SCH (10:27)
[2016-04-28] MEDS: PRENATAL VITAMIN W-O CA NO5/FE FUMARATE/FA CAPSULE PO SCH (10:27)
[2016-04-28] MEDS: FERROUS SULFATE 325 MG TABLET PO SCH ×2 (10:27→18:12)
[2016-04-28] MEDS: DOCUSATE SODIUM 100 MG CAPSULE PO SCH ×2 (10:28→18:12)
--- NOTE | 2016-04-28 18:01 | L&D General Admission ---
General Admit Datetime Report Generated by CPN: 04/28/2016 18:00 INFORMATION Patient Age: 25 (04/26/2016 18:32:QS system process) EDC: 05/11/2016 00:00 (04/26/2016 19:15:Tanisha Fleming RN) : 1 (04/26/2016 19:15:Tanisha Fleming RN) Para: 0 (04/26/2016 19:15:Tanisha Fleming RN) Term: 0 (04/26/2016 19:15:Tanisha Fleming RN) : 0 (04/26/2016 19:15:Tanisha Fleming RN) Spontaneous Abortions: 0 (04/26/2016 19:15:Tanisha Fleming RN) Induced Abortions: 0 (04/26/2016 19:15:Tanisha Fleming RN) Livin (04/26/2016 19:15:Tanisha Fleming RN) Cesareans: 0 (04/26/2016 19:15:Tanisha Fleming RN) VBACs: 0 (04/26/2016 19:15:Tanisha Fleming RN) Ectopic: 0 (04/26/2016 19:15:Tanisha Fleming RN) Multiple Births: 0 (04/26/2016 19:15:Tanisha Fleming RN) Baby, Number in Womb: 1 (04/26/2016 19:15:Tanisha Fleming RN) CARE Primary Mems Device Scientist: [facility] (04/26/2016 19:15:Tanisha Fleming RN) Adequate Care: Yes (04/26/2016 19:15:Tanisha Fleming RN) Prepregnancy Weight (lb): 123 (04/26/2016 19:15:Tanisha Fleming RN) Prepregnancy Weight (kg): 55.9 (04/26/2016 19:15:QS system process) Height (in): 62 (04/28/2016 11:01:QS system process) ALLERGIES Medication Allergy: No (04/26/2016 19:15:Tanisha Fleming RN) Medication Allergies: No Known Allergies (12/30/2015) (04/26/2016 18:32:QS system process) Latex Allergy: No Latex Allergies (04/26/2016 19:15:Tanisha Fleming RN) COMMUNICATION Primary Language: Faroese (04/26/2016 19:15:Tanisha Fleming RN) Medical Tx Preferred Language: Faroese (04/26/2016 19:15:Tanisha Fleming RN) Communication Barrier(s): None (04/26/2016 19:15:Tanisha Fleming RN) DEMOGRAPHICS Address: [address] [place] [id number] (04/26/2016 18:32:QS system process) Zipcode: [id number] (04/26/2016 18:32:QS system process) Home (04/26/2016 18:32:QS system process) SSN: [id number] (04/26/2016 18:32:QS system process) Next of Kin Name: YUNG YOUNG (04/26/2016 18:32:QS system process) Next of Kin (04/26/2016 18:32:QS system process) Next of Kin Relationship: SPO (04/26/2016 18:32:QS system process) Date of : 1990 (04/26/2016 18:32:QS system process) Marital Status: (04/26/2016 18:32:QS system process) Sex: Female (04/26/2016 18:32:QS system process) Race: (04/26/2016 18:32:QS system process) Ethnicity: Non- or (04/26/2016 18:32:QS system process) Christian: None (04/26/2016 18:32:QS system process) DRUG AND ALCOHOL USE Alcohol: No (04/26/2016 19:15:Tanisha Fleming RN) Cigarettes: Never Smoker. [id number] (04/26/2016 19:15:Tanisha Fleming RN) Marijuana: No (04/26/2016 19:15:Tanisha Fleming RN) Cocaine: No (04/26/2016 19:15:Tanisha Fleming RN) Other Illicit Drugs: No (04/26/2016 19:15:Tanisha Fleming RN) VACCINE HISTORY Influenza Vaccine: No (04/26/2016 19:15:Tanisha Fleming RN) Pneumococcal Vaccine: No (04/26/2016 19:15:Tanisha Fleming RN) Stitch Marker: [facility] (04/26/2016 19:15:Tanisha Fleming RN) Feeding Preference: Breast (04/26/2016 19:15:Tanisha Fleming RN) Benefit of Breast Feed Discussed: Yes (04/26/2016 19:15:aTnisha Fleming RN) Circumcision: N/A (04/26/2016 19:15:Tanisha Fleming RN) Classes Attended: Yes (04/26/2016 19:15:Tanisha Fleming RN) Tubal Ligation: No (04/26/2016 19:15:Tanisha Fleming RN) Tubal Authorization Signed: N/A (04/26/2016 19:15:Tanisha Fleming RN) Consent: N/A (04/26/2016 19:15:Tanisha Fleming RN) Consent Signed: N/A (04/26/2016 19:15:Tanisha Fleming RN) Pain Management Plans: Natural; Epidural (04/26/2016 19:15:Tanisha Fleming RN) Plans for Labor and Delivery: None (04/26/2016 19:15:Tanisha Fleming RN) Support Person: Yung Young (04/26/2016 19:15:Tanisha Flemnig RN) Support Person Relationship: Significant Other (04/26/2016 19:15:Tanisha Fleming RN) Cultural/Spritual Practice: No (04/26/2016 19:15:Tanisha Fleming RN) Spir/Cult Dietary Needs: No (04/26/2016 19:15:Tanisha Fleming RN) LIVING SITUATION/DISCHARGE PLAN Living Arrangements: House (04/26/2016 19:15:Tanisha Fleming RN) Adequate Access to:: Electric; Heat; Refrigeration; Plumbing/Running water; Phone; Transportation (04/26/2016 19:15:Tanisha Fleming RN) WIC Program: No (04/26/2016 19:15:Tanisha Fleming RN) Discharge Mutuel Machine Operator Person: Yung (04/26/2016 19:15:Tanisha Fleming RN) Person to Help after Discharge: Yung (04/26/2016 19:15:Tanisha Fleming RN) Currently Using Commun Resources: No (04/26/2016 19:15:Tanisha Fleming RN) Outside Agency/Front Desk Manager: No (04/26/2016 19:15:Tanisha Fleming RN) Adoption Requested: No (04/26/2016 19:15:Tanisha Fleming RN) Pt Contact w/ Post : N/A (04/26/2016 19:15:Tanisha Fleming RN) LABS Blood Type: O Positive (04/26/2016 19:15:Tanisha Fleming RN) Antibody Screen: Negative (04/26/2016 19:15:Tanisha Fleming RN) Rho(G) this : Not Applicable (04/26/2016 19:15:Tanisha Fleming RN) Hemoglobin: 10.9 L (04/28/2016 07:12:QS system process) Hematocrit: 31.1 L (04/28/2016 07:12:QS system process) MCV: 88 (04/28/2016 07:12:QS system process) Group Beta Strep: Positive (04/26/2016 19:15:Tanisha Fleming RN) Gonorrhea: Negative (04/26/2016 19:15:Tanisha Fleming RN) Chlamydia: Negative (04/26/2016 19:15:Tanisha Fleming RN) RPR/VDRL: Nonreactive (04/26/2016 19:15:Tanisha Fleming RN) HIV Results: Negative (04/26/2016 19:15:Tanisha Fleming RN) Hepatitis B: Negative (04/26/2016 19:15:Tanisha Fleming RN) Rubella: Immune (04/26/2016 19:15:Tanisha Fleming RN) OB/PREVIOUS HISTORY Previous Procedures: None (04/26/2016 19:15:Tanisha Fleming RN) Current Procedures: Ultrasound; NST (04/26/2016 19:15:Tanisha Fleming RN) History of Previous : No (04/26/2016 19:15:Tanisha Fleming RN) History of Gestational Diabetes: No (04/26/2016 19:15:Tanisha Fleming RN) History of PIH: No (04/26/2016 19:15:Tanisha Fleming RN) History of Incompetent Cervix: No (04/26/2016 19:15:Tanisha Fleming RN) History of Placenta Previa/Abrup: No (04/26/2016 19:15:Tanisha Fleming RN) History of Macrosomia: No (04/26/2016 19:15:Tanisha Fleming RN) History of IUGR: No (04/26/2016 19:15:Tanisha Fleming RN) History of Hemorrhage: No (04/26/2016 19:15:Tanisha Fleming RN) History of Loss/Stillborn: No (04/26/2016 19:15:Tanisha Fleming RN) History of : No (04/26/2016 19:15:Tanisha Fleming RN) History of D (Rh) Sensitization: No (04/26/2016 19:15:Tanisha Fleming RN) History Recurrent Loss/Stillborn: No (04/26/2016 19:15:Tanisha Fleming RN) History Depression/PP Depression: No (04/26/2016 19:15:Tanisha Fleming RN) History of Uterine Anomaly/ANITA: No (04/26/2016 19:15:Tanisha Fleming RN) History of Infertility: No (04/26/2016 19:15:Tanisha Fleming RN) History of ART Treatment: No (04/26/2016 19:15:Tanisha Fleming RN) History of ANITA: No (04/26/2016 19:15:Tanisha Fleming RN) Comments Obstetrical History: G1-Current (04/26/2016 19:15:Tanisha Fleming RN) MEDICAL HISTORY Med Hx Diabetes: No (04/26/2016 19:15:Tanisha Fleming RN) Med Hx Hypertension: No (04/26/2016 19:15:Tanisha Fleming RN) Med Hx Heart Disease: No (04/26/2016 19:15:Tanisha Fleming RN) Med Hx Autoimmune Disorder: No (04/26/2016 19:15:Tanisha Fleming RN) Med Hx Kidney Disease/UTI: No (04/26/2016 19:15:Tanisha Fleming RN) Med Hx Neurologic/Epilepsy: No (04/26/2016 19:15:Tanisha Fleming RN) Med Hx Psychiatric Disorders: No (04/26/2016 19:15:Tanisha Fleming RN) Med Hx Hepatitis/Liver Disease: No (04/26/2016 19:15:Tanisha Fleming RN) Med Hx Varicosities/Phlebitis: No (04/26/2016 19:15:Tanisha Fleming RN) Med Hx Thyroid Dysfunction: No (04/26/2016 19:15:Tanisha Fleming RN) Med Hx Trauma/Violence: No (04/26/2016 19:15:Tanisha Fleming RN) Med Hx Blood Transfusion: No (04/26/2016 19:15:Tanisha Fleming RN) Med Hx Pulmonary (Asthma,TB): No (04/26/2016 19:15:Tanisha Fleming RN) Med Hx Breast: No (04/26/2016 19:15:Tanisha Fleming RN) Med Hx DIVE SUPERVISOR Surgery: No (04/26/2016 19:15:Tanisha Fleming RN) Med Hx Hospitalization/Surgery: No (04/26/2016 19:15:Tanisha Fleming RN) Med Hx Anesthetic Complications: No (04/26/2016 19:15:Tanisha Fleming RN) Med Hx Abnormal Pap Smear: No (04/26/2016 19:15:Tanisha Fleming RN) Other Medical Diseases: No (04/26/2016 19:15:Tanisha Fleming RN) Med Hx Significant Family Hx: No (04/26/2016 19:15:Tanisha Fleming RN) INFECTIOUS HISTORY Inf Hx Gonorrhea: No (04/26/2016 19:15:Tanisha Fleming RN) Inf Hx Chlamydia: No (04/26/2016 19:15:Tanisha Fleming RN) Inf Hx Syphilis: No (04/26/2016 19:15:Tanisha Fleming RN) Inf Hx HIV/AIDS: No (04/26/2016 19:15:Tanisha Fleming RN) Inf Hx Human Papilloma Virus: No (04/26/2016 19:15:Tanisha Fleming RN) Inf Hx Pt/Partner Genital Herpes: No (04/26/2016 19:15:Tanisha Fleming RN) Inf Hx Tuberculosis/Exposure: No (04/26/2016 19:15:Tanisha Fleming RN) Inf Hx Hepatitis B,C: No (04/26/2016 19:15:Tanisha Fleming RN) Inf Hx Rash or Viral Illness: No (04/26/2016 19:15:Tanisha Fleming RN) GENETIC HISTORY Gen Hx Age >=35 at MAHAMED: No (04/26/2016 19:15:Tanisha Fleming RN) Gen Hx Thalassemia: No (04/26/2016 19:15:Tanisha Fleming RN) Gen Hx Congenital Heart Defect: No (04/26/2016 19:15:Tanisha Fleming RN) Gen Hx Neural Tube Defect: No (04/26/2016 19:15:Tanisha Fleming RN) Gen Hx Down's Syndrome: No (04/26/2016 19:15:Tanisha Fleming RN) Gen Hx Desmond-Sachs: No (04/26/2016 19:15:Tanisha Fleming RN) Gen Hx Tino: No (04/26/2016 19:15:Tanisha Fleming RN) Gen Hx Familial Dysautonomia: No (04/26/2016 19:15:Tanisha Fleming RN) Gen Hx Sickle Cell Disease/Trait: No (04/26/2016 19:15:Tanisha Fleming RN) Gen Hx Hemophilia/Blood Disorder: No (04/26/2016 19:15:Tanisha Fleming RN) Gen Hx Muscular Dystrophy: No (04/26/2016 19:15:Tanisha Fleming RN) Gen Hx Cystic Fibrosis: No (04/26/2016 19:15:Tanisha Fleming RN) Gen Hx [place] Chorea: No (04/26/2016 19:15:Tanisha Fleming RN) Gen Hx Mental Retardation/Autism: No (04/26/2016 19:15:Tanisha Fleming RN) Gen Hx Tested for Fragile X: No (04/26/2016 19:15:Tanisha Fleming RN) Gen Hx Other Inher/Chromosomal: No (04/26/2016 19:15:Tanisha Fleming RN) Gen Hx Maternal Metabolic DO: No (04/26/2016 19:15:Tanisha Fleming RN) Gen Hx Pt Father or FOB Defect: No (04/26/2016 19:15:Tanisha Fleming RN) Gen Hx Other Genetic History: No (04/26/2016 19:15:Tanisha Fleming RN) Gen Hx Drugs/Meds since LMP: No (04/26/2016 19:15:Tanisha Fleming RN)
--- NOTE | 2016-04-28 18:01 | L&D Current Admission ---
Current Admit Datetime Report Generated by CPN: 04/28/2016 18:00 ADMISSION INFORMATION Current Admit Date/Time: 04/26/2016 19:16 (04/26/2016 19:16:Tanisha Fleming RN) Reason for Admission: Induction of Labor (04/26/2016 19:16:Tanisha Fleming RN) EGA per Dates: 37.6 (04/26/2016 19:16:QS system process) Method of Arrival: Ambulatory (04/26/2016 19:16:Tanisha Fleming RN) Admitted From: Home (04/26/2016 19:16:Tanisha Fleming RN) Reason for Induction: Intrauterine Growth Retardation (04/26/2016 19:16:Tanisha Fleming RN) Records Available: Yes (04/26/2016 19:16:Tanisha Fleming RN) General Admission Information: Reviewed; Updated; Confirmed (04/26/2016 19:16:Tanisha Fleming RN) General Admission Reviewed By: Francis Fleming RN (04/26/2016 19:16:Tanisha Fleming RN) BELONGINGS/ADVANCED DIRECTIVES Valuables/Personal Effects: Purse/Wallet; Cell Phone; Camera (04/26/2016 19:16:Tanisha Fleming RN) Disposition of Belongings: Kept with Patient (04/26/2016 19:16:Tanisha Fleming RN) Advance Direct for Healthcare: No, and Wants No Information (04/26/2016 19:16:Tanisha Fleming RN) Durable Power of Batch Heat Treat Operator: No (04/26/2016 19:16:Tanisha Fleming RN) Living Will: No (04/26/2016 19:16:Tanisha Fleming RN) Organ Donor: Undecided (04/26/2016 19:16:Tanisha Fleming RN) Pt Rights Information Given: Yes (04/26/2016 19:16:Tanisha Fleming RN) Pt Understands Pt Rights: Yes (04/26/2016 19:16:Tanisha Fleming RN) LEARNING ASSESSMENT Knowledge Level: Understands L_D Process; Understands Care Activities; Had Pre-Hospital Education; Understands Diagnosis (04/26/2016 19:16:Tanisha Fleming RN) Barriers to Learning: None (04/26/2016 19:16:Tanisha Fleming RN) Learning Readiness: Motivated (04/26/2016 19:16:Tanisha Fleming RN) Learns Best By: 1 to 1 Instruction; Reading; Videos; Demonstration (04/26/2016 19:16:Tanisha Fleming RN) Learning Needs: Labor and Delivery Process; Pain Management; Symptoms to Report (04/26/2016 19:16:Tanisha Fleming RN) DOMESTIC VIOLANCE SCREENING Dom Viol Threatened/Hurt: No (04/26/2016 19:16:Tanisha Fleming RN) Hx of Abuse/Neglect past 2yrs: No (04/26/2016 19:16:Tanisha Fleming RN) Feel Unsafe Going Home: No (04/26/2016 19:16:Tanisha Fleming RN) Addt'l Observ Indicating Abuse: No (04/26/2016 19:16:Tanisha Fleming RN) Reason Unable to Complete Screen: N/A, Screen Completed (04/26/2016 19:16:Tanisha Fleming RN) Considered Personal Harm/Suicide: No (04/26/2016 19:16:Tanisha Fleming RN) NUTRITIONAL/FUNCTIONAL SCREENING Problem with Appetite >5 Days: No (04/26/2016 19:16:Tanisha Fleming RN) Chew/Swallow Difficulties: No (04/26/2016 19:16:Tanisha Fleming RN) Inappropriate Wt Gain/Loss: No (04/26/2016 19:16:Tanisha Fleming RN) Presence Skin Breakdown/Ulcer: No (04/26/2016 19:16:Tanisha Fleming RN) Special Diet: No (04/26/2016 19:16:Tanisha Fleming RN) Pt Requests Binding Cutter Synthetic Cloth Visit: No (04/26/2016 19:16:Tanisha Fleming RN) Hx of Any of the Following?: N/A (04/26/2016 19:16:Tanisha Fleming RN) New Diagnosis of: N/A (04/26/2016 19:16:Tanisha Fleming RN) Requires Assist w/Ambulation: No (04/26/2016 19:16:Tanisha Fleming RN) Uses Assist Device to Ambulate: No (04/26/2016 19:16:Tanisha Fleming RN) Pt Requires Help w/ADL's: No (04/26/2016 19:16:Tanisha Fleming RN)
--- NOTE | 2016-04-29 06:01 | L&D Current Admission ---
Current Admit Datetime Report Generated by CPN: 04/29/2016 06:00 ADMISSION INFORMATION Current Admit Date/Time: 04/26/2016 19:16 (04/26/2016 19:16:Tanisha Fleming RN) Reason for Admission: Induction of Labor (04/26/2016 19:16:Tanisha Fleming RN) EGA per Dates: 37.6 (04/26/2016 19:16:QS system process) Method of Arrival: Ambulatory (04/26/2016 19:16:Tanisha Fleming RN) Admitted From: Home (04/26/2016 19:16:Tanisha Fleming RN) Reason for Induction: Intrauterine Growth Retardation (04/26/2016 19:16:Tanisha Fleming RN) Records Available: Yes (04/26/2016 19:16:Tanisha Fleming RN) General Admission Information: Reviewed; Updated; Confirmed (04/26/2016 19:16:Tanisha Fleming RN) General Admission Reviewed By: Francis Fleming RN (04/26/2016 19:16:Tanisha Fleming RN) BELONGINGS/ADVANCED DIRECTIVES Valuables/Personal Effects: Purse/Wallet; Cell Phone; Camera (04/26/2016 19:16:Tanisha Fleming RN) Disposition of Belongings: Kept with Patient (04/26/2016 19:16:Tanisha Fleming RN) Advance Direct for Healthcare: No, and Wants No Information (04/26/2016 19:16:Tanisha Fleming RN) Durable Power of Director Of Health Education: No (04/26/2016 19:16:Tanisha Fleming RN) Living Will: No (04/26/2016 19:16:Tanisha Fleming RN) Organ Donor: Undecided (04/26/2016 19:16:Tanisha Fleming RN) Pt Rights Information Given: Yes (04/26/2016 19:16:Tanisha Fleming RN) Pt Understands Pt Rights: Yes (04/26/2016 19:16:Tanisha Fleming RN) LEARNING ASSESSMENT Knowledge Level: Understands L_D Process; Understands Care Activities; Had Pre-Hospital Education; Understands Diagnosis (04/26/2016 19:16:Tanisha Fleming RN) Barriers to Learning: None (04/26/2016 19:16:Tanisha Fleming RN) Learning Readiness: Motivated (04/26/2016 19:16:Tanisha Fleming RN) Learns Best By: 1 to 1 Instruction; Reading; Videos; Demonstration (04/26/2016 19:16:Tanisha Fleming RN) Learning Needs: Labor and Delivery Process; Pain Management; Symptoms to Report (04/26/2016 19:16:Tanisha Fleming RN) DOMESTIC VIOLANCE SCREENING Dom Viol Threatened/Hurt: No (04/26/2016 19:16:Tanisha Fleming RN) Hx of Abuse/Neglect past 2yrs: No (04/26/2016 19:16:Tanisha Fleming RN) Feel Unsafe Going Home: No (04/26/2016 19:16:Tanisha Fleming RN) Addt'l Observ Indicating Abuse: No (04/26/2016 19:16:Tanisha Fleming RN) Reason Unable to Complete Screen: N/A, Screen Completed (04/26/2016 19:16:Tanisha Fleming RN) Considered Personal Harm/Suicide: No (04/26/2016 19:16:Tanisha Fleming RN) NUTRITIONAL/FUNCTIONAL SCREENING Problem with Appetite >5 Days: No (04/26/2016 19:16:Tanisha Fleming RN) Chew/Swallow Difficulties: No (04/26/2016 19:16:Tanisha Fleming RN) Inappropriate Wt Gain/Loss: No (04/26/2016 19:16:Tanisha Fleming RN) Presence Skin Breakdown/Ulcer: No (04/26/2016 19:16:Tanisha Fleming RN) Special Diet: No (04/26/2016 19:16:Tanisha Fleming RN) Pt Requests Waiter/Waitress Club Visit: No (04/26/2016 19:16:Tanisha Fleming RN) Hx of Any of the Following?: N/A (04/26/2016 19:16:Tanisha Fleming RN) New Diagnosis of: N/A (04/26/2016 19:16:Tanisha Fleming RN) Requires Assist w/Ambulation: No (04/26/2016 19:16:Tanisha Fleming RN) Uses Assist Device to Ambulate: No (04/26/2016 19:16:Tanisha Fleming RN) Pt Requires Help w/ADL's: No (04/26/2016 19:16:Tanisha Fleming RN)
--- NOTE | 2016-04-29 06:01 | L&D General Admission ---
General Admit Datetime Report Generated by CPN: 04/29/2016 06:00 INFORMATION Patient Age: 25 (04/26/2016 18:32:QS system process) EDC: 05/11/2016 00:00 (04/26/2016 19:15:Tanisha Fleming RN) : 1 (04/26/2016 19:15:Tanisha Fleming RN) Para: 0 (04/26/2016 19:15:Tanisha Fleming RN) Term: 0 (04/26/2016 19:15:Tanisha Fleming RN) : 0 (04/26/2016 19:15:Tanisha Fleming RN) Spontaneous Abortions: 0 (04/26/2016 19:15:Tanisha Fleming RN) Induced Abortions: 0 (04/26/2016 19:15:Tanisha Fleming RN) Livin (04/26/2016 19:15:Tanisha Fleming RN) Cesareans: 0 (04/26/2016 19:15:Tanisha Fleming RN) VBACs: 0 (04/26/2016 19:15:Tanisha Fleming RN) Ectopic: 0 (04/26/2016 19:15:Tanisha Fleming RN) Multiple Births: 0 (04/26/2016 19:15:Tanisha Fleming RN) Baby, Number in Womb: 1 (04/26/2016 19:15:Tanisha Fleming RN) CARE Primary Physician General Practice: [facility] (04/26/2016 19:15:Tanisha Fleming RN) Adequate Care: Yes (04/26/2016 19:15:Tanisha Fleming RN) Prepregnancy Weight (lb): 123 (04/26/2016 19:15:Tanisha Fleming RN) Prepregnancy Weight (kg): 55.9 (04/26/2016 19:15:QS system process) Height (in): 62 (04/28/2016 11:01:QS system process) ALLERGIES Medication Allergy: No (04/26/2016 19:15:Tanisha Fleming RN) Medication Allergies: No Known Allergies (12/30/2015) (04/26/2016 18:32:QS system process) Latex Allergy: No Latex Allergies (04/26/2016 19:15:Tanisha Fleming RN) COMMUNICATION Primary Language: German (04/26/2016 19:15:Tanisha Fleming RN) Medical Tx Preferred Language: German (04/26/2016 19:15:Tanisha Fleming RN) Communication Barrier(s): None (04/26/2016 19:15:Tanisha Fleming RN) DEMOGRAPHICS Address: [address] [place] [id number] (04/26/2016 18:32:QS system process) Zipcode: [address] (04/26/2016 18:32:QS system process) Home (04/26/2016 18:32:QS system process) SSN: [id number] (04/26/2016 18:32:QS system process) Next of Kin Name: YUNG YOUNG (04/26/2016 18:32:QS system process) Next of Kin (04/26/2016 18:32:QS system process) Next of Kin Relationship: SPO (04/26/2016 18:32:QS system process) Date of : 1990 (04/26/2016 18:32:QS system process) Marital Status: (04/26/2016 18:32:QS system process) Sex: Female (04/26/2016 18:32:QS system process) Race: (04/26/2016 18:32:QS system process) Ethnicity: Non- or (04/26/2016 18:32:QS system process) Presybeterian: None (04/26/2016 18:32:QS system process) DRUG AND ALCOHOL USE Alcohol: No (04/26/2016 19:15:Tanisha Fleming RN) Cigarettes: Never Smoker. [id number] (04/26/2016 19:15:Tanisha Fleming RN) Marijuana: No (04/26/2016 19:15:Tanisha Fleming RN) Cocaine: No (04/26/2016 19:15:Tanisha Fleming RN) Other Illicit Drugs: No (04/26/2016 19:15:Tanisha Fleming RN) VACCINE HISTORY Influenza Vaccine: No (04/26/2016 19:15:Tanisha Fleming RN) Pneumococcal Vaccine: No (04/26/2016 19:15:Tanisha Fleming RN) Lumber Straightened: [facility] (04/26/2016 19:15:Tanisha Fleming RN) Feeding Preference: Breast (04/26/2016 19:15:Tanisha Fleming RN) Benefit of Breast Feed Discussed: Yes (04/26/2016 19:15:Tanisha Fleming RN) Circumcision: N/A (04/26/2016 19:15:Tanisha Fleming RN) Classes Attended: Yes (04/26/2016 19:15:Tanisha Fleming RN) Tubal Ligation: No (04/26/2016 19:15:Tanisha Fleming RN) Tubal Authorization Signed: N/A (04/26/2016 19:15:Tanisha Fleming RN) Consent: N/A (04/26/2016 19:15:Tanisha Fleming RN) Consent Signed: N/A (04/26/2016 19:15:Tanisha Fleming RN) Pain Management Plans: Natural; Epidural (04/26/2016 19:15:Tanisha Fleming RN) Plans for Labor and Delivery: None (04/26/2016 19:15:Tanisha Fleming RN) Support Person: Yung Young (04/26/2016 19:15:Tanisha Fleming RN) Support Person Relationship: Significant Other (04/26/2016 19:15:Tanisha Fleming RN) Cultural/Spritual Practice: No (04/26/2016 19:15:Tanisha Fleming RN) Spir/Cult Dietary Needs: No (04/26/2016 19:15:Tanisha Fleming RN) LIVING SITUATION/DISCHARGE PLAN Living Arrangements: House (04/26/2016 19:15:Tanisha Fleming RN) Adequate Access to:: Electric; Heat; Refrigeration; Plumbing/Running water; Phone; Transportation (04/26/2016 19:15:Tanisha Fleming RN) WIC Program: No (04/26/2016 19:15:Tanisha Fleming RN) Discharge Suppository Molding Machine Operator Person: Yung (04/26/2016 19:15:Tanisha Fleming RN) Person to Help after Discharge: Yung (04/26/2016 19:15:Tanisha Fleming RN) Currently Using Commun Resources: No (04/26/2016 19:15:Tanisha Fleming RN) Outside Agency/Paleology Professor: No (04/26/2016 19:15:Tanisha Fleming RN) Adoption Requested: No (04/26/2016 19:15:Tanisha Fleming RN) Pt Contact w/ Post : N/A (04/26/2016 19:15:Tanisha Fleming RN) LABS Blood Type: O Positive (04/26/2016 19:15:Tanisha Fleming RN) Antibody Screen: Negative (04/26/2016 19:15:Tanisha Fleming RN) Rho(G) this : Not Applicable (04/26/2016 19:15:Tanisha Fleming RN) Hemoglobin: 10.9 L (04/28/2016 07:12:QS system process) Hematocrit: 31.1 L (04/28/2016 07:12:QS system process) MCV: 88 (04/28/2016 07:12:QS system process) Group Beta Strep: Positive (04/26/2016 19:15:Tanisha Fleming RN) Gonorrhea: Negative (04/26/2016 19:15:Tanisha Fleming RN) Chlamydia: Negative (04/26/2016 19:15:Tanisha Fleming RN) RPR/VDRL: Nonreactive (04/26/2016 19:15:Tanisha Fleming RN) HIV Results: Negative (04/26/2016 19:15:Tanisha Fleming RN) Hepatitis B: Negative (04/26/2016 19:15:Tanisha Fleming RN) Rubella: Immune (04/26/2016 19:15:Tanisha Fleming RN) OB/PREVIOUS HISTORY Previous Procedures: None (04/26/2016 19:15:Tanisha Fleming RN) Current Procedures: Ultrasound; NST (04/26/2016 19:15:Tanisha Fleming RN) History of Previous : No (04/26/2016 19:15:Tanisha Fleming RN) History of Gestational Diabetes: No (04/26/2016 19:15:Tanisha Fleming RN) History of PIH: No (04/26/2016 19:15:Tanisha Fleming RN) History of Incompetent Cervix: No (04/26/2016 19:15:Tanisha Fleming RN) History of Placenta Previa/Abrup: No (04/26/2016 19:15:Tanisha Fleming RN) History of Macrosomia: No (04/26/2016 19:15:Tanisha Fleming RN) History of IUGR: No (04/26/2016 19:15:Tanisha Fleming RN) History of Hemorrhage: No (04/26/2016 19:15:Tanisha Fleming RN) History of Loss/Stillborn: No (04/26/2016 19:15:Tanisha Fleming RN) History of : No (04/26/2016 19:15:Tanisha Fleming RN) History of D (Rh) Sensitization: No (04/26/2016 19:15:Tanisha Fleming RN) History Recurrent Loss/Stillborn: No (04/26/2016 19:15:Tanisha Fleming RN) History Depression/PP Depression: No (04/26/2016 19:15:Tanisha Fleming RN) History of Uterine Anomaly/ANITA: No (04/26/2016 19:15:Tanisha Fleming RN) History of Infertility: No (04/26/2016 19:15:Tanisha Fleming RN) History of ART Treatment: No (04/26/2016 19:15:Tanisha Fleming RN) History of ANITA: No (04/26/2016 19:15:Tanisha Fleming RN) Comments Obstetrical History: G1-Current (04/26/2016 19:15:Tanisha Fleming RN) MEDICAL HISTORY Med Hx Diabetes: No (04/26/2016 19:15:Tanisha Fleming RN) Med Hx Hypertension: No (04/26/2016 19:15:Tanisha Fleming RN) Med Hx Heart Disease: No (04/26/2016 19:15:Tanisha Fleming RN) Med Hx Autoimmune Disorder: No (04/26/2016 19:15:Tanisha Fleming RN) Med Hx Kidney Disease/UTI: No (04/26/2016 19:15:Tanisha Fleming RN) Med Hx Neurologic/Epilepsy: No (04/26/2016 19:15:Tanisha Fleming RN) Med Hx Psychiatric Disorders: No (04/26/2016 19:15:Tanisha Fleming RN) Med Hx Hepatitis/Liver Disease: No (04/26/2016 19:15:Tanisha Fleming RN) Med Hx Varicosities/Phlebitis: No (04/26/2016 19:15:Tanisha Fleming RN) Med Hx Thyroid Dysfunction: No (04/26/2016 19:15:Tanisha Fleming RN) Med Hx Trauma/Violence: No (04/26/2016 19:15:Tanisha Fleming RN) Med Hx Blood Transfusion: No (04/26/2016 19:15:Tanisha Fleming RN) Med Hx Pulmonary (Asthma,TB): No (04/26/2016 19:15:Tanisha Fleming RN) Med Hx Breast: No (04/26/2016 19:15:Tanisha Fleming RN) Med Hx SHOE HANDLER Surgery: No (04/26/2016 19:15:Tanisha Fleming RN) Med Hx Hospitalization/Surgery: No (04/26/2016 19:15:Tanisha Fleming RN) Med Hx Anesthetic Complications: No (04/26/2016 19:15:Tanisha Fleming RN) Med Hx Abnormal Pap Smear: No (04/26/2016 19:15:Tanisha Fleming RN) Other Medical Diseases: No (04/26/2016 19:15:Tanisha Fleming RN) Med Hx Significant Family Hx: No (04/26/2016 19:15:Tanisha Fleming RN) INFECTIOUS HISTORY Inf Hx Gonorrhea: No (04/26/2016 19:15:Tanisha Fleming RN) Inf Hx Chlamydia: No (04/26/2016 19:15:Tanisha Fleming RN) Inf Hx Syphilis: No (04/26/2016 19:15:Tanisha Fleming RN) Inf Hx HIV/AIDS: No (04/26/2016 19:15:Tanisha Fleming RN) Inf Hx Human Papilloma Virus: No (04/26/2016 19:15:Tanisha Fleming RN) Inf Hx Pt/Partner Genital Herpes: No (04/26/2016 19:15:Tanisha Fleming RN) Inf Hx Tuberculosis/Exposure: No (04/26/2016 19:15:Tanisha Fleming RN) Inf Hx Hepatitis B,C: No (04/26/2016 19:15:Tanisha Fleming RN) Inf Hx Rash or Viral Illness: No (04/26/2016 19:15:Tanisha Fleming RN) GENETIC HISTORY Gen Hx Age >=35 at MAHAMED: No (04/26/2016 19:15:Tanisha Fleming RN) Gen Hx Thalassemia: No (04/26/2016 19:15:Tanisha Fleming RN) Gen Hx Congenital Heart Defect: No (04/26/2016 19:15:Tanisha Fleming RN) Gen Hx Neural Tube Defect: No (04/26/2016 19:15:Tanisha Fleming RN) Gen Hx Down's Syndrome: No (04/26/2016 19:15:Tanisha Fleming RN) Gen Hx Desmond-Sachs: No (04/26/2016 19:15:Tanisha Fleming RN) Gen Hx Tino: No (04/26/2016 19:15:Tanisha Fleming RN) Gen Hx Familial Dysautonomia: No (04/26/2016 19:15:Tanisha Fleming RN) Gen Hx Sickle Cell Disease/Trait: No (04/26/2016 19:15:Tanisha Fleming RN) Gen Hx Hemophilia/Blood Disorder: No (04/26/2016 19:15:Tanisha Fleming RN) Gen Hx Muscular Dystrophy: No (04/26/2016 19:15:Tanisha Fleming RN) Gen Hx Cystic Fibrosis: No (04/26/2016 19:15:Tanisha Fleming RN) Gen Hx [place] Chorea: No (04/26/2016 19:15:Tanisha Fleming RN) Gen Hx Mental Retardation/Autism: No (04/26/2016 19:15:Tanisha Fleming RN) Gen Hx Tested for Fragile X: No (04/26/2016 19:15:Tanisha Fleming RN) Gen Hx Other Inher/Chromosomal: No (04/26/2016 19:15:Tanisha Fleming RN) Gen Hx Maternal Metabolic DO: No (04/26/2016 19:15:Tanisha Fleming RN) Gen Hx Pt Father or FOB Defect: No (04/26/2016 19:15:Tanisha Fleming RN) Gen Hx Other Genetic History: No (04/26/2016 19:15:Tanisha Fleming RN) Gen Hx Drugs/Meds since LMP: No (04/26/2016 19:15:Tanisha Fleming RN)
[2016-04-29] MEDS: IBUPROFEN 800 MG TABLET PO SCH ×2 (06:08→14:55)
--- NOTE | 2016-04-29 06:16 | L&D Care Plan ---
LD CARE PLANS Datetime Report Generated by CPN: 04/29/2016 06:15 Datetime: 04/26/2016 18:42 Pain State: Risk For (Meg Joseph RN) Related To: Labor and Delivery Process; Treatment and Procedures (Meg Joseph RN) Goal(s): Patients Pain will be Assessed and Managed; Patient will Verbalize Adequate Relief of Pain or the Ability to [place] with Current Pain (Meg Joseph RN) Interventions: Assess Pain Severity on Scale of 0 (None) to 5 (Severe); Assess Type, Location and Intensity of Pain Each Time Client Reports Discomfort and Notify Provider if Unusal Pain Develops; Encourage Proper Breathing and Relaxation Techniques; Offer Alternatives Such as Repositioning, Calm Environment, Massages, Diversional Activities, Ice Pack, Splinting, and Ambulation; Administer Analgesics as Ordered; Assist with Epidural Placement as Appropriate; Evaluate Therapeutic Effectiveness of Medication and Treatments (Meg Joseph RN) Outcome: Patient will Report Absence or Relief of Pain Consistent with Established Pain Goal (Meg Joseph RN) Status: Ongoing (Meg Joseph RN) Outcome: Patient will have a Decrease in Signs and Symptoms of Discomfort (Meg Joseph RN) Status: Ongoing (Meg Joseph RN) Outcome: Pain will be Controlled During Procedures (Meg Joseph RN) Status: Ongoing (Meg Joseph RN) Anxiety State: Risk For (Meg Joseph RN) Related To: Labor and Delivery Process; Medical Interventions (Meg Joseph RN) Goal(s): Patient will have Decreased Anxiety and be able to Function at Acceptable Levels (Meg Joseph RN) Interventions: Assess Verbal and Nonverbal Behavioral Indicators of Anxiety; Assist Patient to Identify and Verbalize Symptoms of Anxiety; Identify and Demonstrate Techniques to Control Anxiety; Assist Patient with Coping Mechanisms to Manage Anxiety; Provide Theraputic Touch for the Patient; Explain to Patient, Using a Calm Reassuring Approach and Nonmedical Terms, All Activities, Procedures, and Concerns; Instruct Patient and Family about Post Discharge Care, Limitations, Symptoms to Report and Resources Available (Meg Joseph, FERNANDA) Outcome: Patient will Identify, Verbalize and Demonstrate Techniques to Control Anxiety (Meg Joseph RN) Status: Ongoing (Meg Joseph RN) Outcome: Patient's Posture, Facial Expressions, Gestures and Activity Level will Reflect Decreased Anxiety (Meg Joseph RN) Status: Ongoing (Meg Joseph RN) Outcome: Patient will Verbalize a Sense of Control and/or Acceptance of the Situation (Meg Joseph RN) Status: Ongoing (Meg Joseph RN) Outcome: Patient will Identify and Utilize Support Person (Meg Joseph RN) Status: Ongoing (Meg Joseph RN) Knowledge Deficit State: Risk For (Meg Joseph RN) Related To: Labor and Delivery Process; Treatment and Procedures (Meg Joseph RN) Goal(s): Patient will Accurately Verbalize Understanding of Plan of Care and Treatment; Patient and Family will Accurately Verbalize Understanding of the Disease Process (Meg Joseph RN) Interventions: Assess Motivation and Willingness of Patient/Family to Learn; Assess Preferred Learning Mode: One to One Instruction, Reading, Videos, Group Discussion or Demonstration; Assess Barriers to Learning: Pain, Emotional State, Language Barrier, Cognitive Impairment, Visual or Hearing Deficits; Assess Patient and Family Knowledge of Disease Process, Medications and Treatment; Discuss Therapy and/or Treatment Options, Describe Rationale Behind Management, Therapy and Treatment Recommendations; Instruct Patient and Family on Signs and Symptoms to Report; Instruct Patient and Family on Medication Effects and Side Effects; Provide Appropriate and Timely Education Using Multiple Techniques; Provide Patient and Family with Support Group Information and Resources; Give Clear and Thorough Explanations and Demonstrations (Meg Joseph RN) Outcome: Patient and Family will Verbalize Understanding of Condition, Treatment and Signs and Symptoms to Report (Meg Joseph RN) Status: Ongoing (Meg Joseph RN) Outcome: Patient will Identify Perceived Learning Needs and Express Motivation to Learn (Meg Joseph RN) Status: Ongoing (Meg Joseph RN) Outcome: Patient will Verbalize Understanding of Desired Content, and/or Performs Desired Skill Prior to Discharge (Meg Joseph RN) Status: Ongoing (Meg Joseph RN) Infection State: Risk For (Meg Joseph RN) Related To: Prolonged Labor or Induction (Meg Joseph RN) Goal(s): The Patient will be Free of Infection, Vital Signs Stable and Lab Work within Normal Parameters (Meg Joseph RN) Interventions: Instruct and Reinforce Proper Handwashing, Hygiene, and Care Techniques to Patient and Family; Monitor Vital Signs; Monitor Patient for the Following Signs of Infection: Fever, Abdominal Tenderness, Unusual Discharge; Monitor Aminiotic Fluid, Urine and Lochia for Color and Odor; Observe Wounds, Incisions and Invasive Line Sites for Redness, Drainage and Edema; Assess IV Sites per Hospital Policy; Monitor Lab and Test Results and Notify Provider of Abnormal Findings; Assess Nutritional Status and Promote Good Nutrition (Meg Joseph RN) Outcome: Patient will Remain Free of Infection (Meg Joseph RN) Status: Ongoing (Meg Joseph RN) Outcome: Infection will be Recognized Early to Allow for Prompt Treatment (Meg Jospeh RN) Status: Ongoing (Meg Joseph RN) Outcome: Patient will have Vital Signs Within Expected Range (Meg Joseph RN) Status: Ongoing (Meg Joseph RN) Fluid Volume State: Risk For (Meg Joseph RN) Related To: Prolonged Labor or Induction (Meg Joseph RN) Goal(s): Patient will Achieve and Maintain a Balanced Fluid Volume Status; Hemodynamically Stable (Meg Joseph RN) Interventions: Monitor Vital Signs; Auscultate Breath Sounds; Monitor Patient for Skin Turgor, Mucous Membranes, Dry Skin, Weakness, Headaches and Confusion; Provide Oral Fluids as Ordered; Initiate and Maintain Intravenous Fluids as Ordered; Monitor Intake and Output as Indicated Per Patient Status; Accurately Measure Blood Loss; Monitor Lab and Test Results as Obtained and Notify Provider of Abnormal Findings; Monitor Patient's Weight (Meg Joseph RN) Outcome: Patient will have Clear Lung Sounds (Meg Joseph RN) Status: Ongoing (Meg Joseph RN) Outcome: Patient will have Vital Signs within Expected Range (Meg Joseph RN) Status: Ongoing (Meg Joseph RN) Outcome: Urine Output will be within Expected Range (Meg Joseph RN) Status: Ongoing (Meg Joseph RN) Outcome: Patient will have Minimal Generalized or Upper Extremity Edema (Meg Joseph RN) Status: Ongoing (Meg Joseph RN) Injury State: Risk For (Meg Joseph RN) Related To: Labor and Delivery Process (Meg Joseph RN) Goal(s): Patient will Remain Free from Injury (Meg Joseph RN) Interventions: Monitoring as per Hospital Protocol; Assess Neurological Status; Perform Risk Assessment of Patients with Induction and ; Perform Fall Risk Assessment and Prevention per Hospital Protocol; Perform DVT Risk Assessment and Prophylaxis per Hospital Protocol; Ensure that Oxygen, Suction, and Resuscitation Medications and Equipment are Readily Available; Confirm Patient ID Prior to Procedure(s) and Medication Administration per Hospital Policy (Meg Joseph RN) Outcome: Successful Fall Risk Prevention (Meg Joseph RN) Status: Ongoing (Meg Joseph RN) Outcome: Patient will Deliver Infant without Adverse [place] (Meg Joseph RN) Status: Ongoing (Meg Joseph RN) Outcome: Patient's Neurological Status will Remain Stable (Meg Joseph RN) Status: Ongoing (Meg Joseph RN) Impaired Skin Integrity State: Risk For (Meg Joseph RN) Related To: Vaginal Delivery (Meg Joseph RN) Goal(s): Patient will Maintain Optimal Skin Integrity, Free of Breakdown, Injury or Infection (Meg Joseph RN) Interventions: Complete Screening for Pressure Ulcer Risk and Initiate Protocol per Hospital Policy; Monitor Site of Skin Impairment for Color Changes, Redness, Swelling, Warmth, Pain or Other Signs of Infection; Encourage and Assist with Position Changes; Monitor Patient's Mobility Status; Provide Adequate Nutrition and Fluids; Teach Patient Appropriate Hygienic Care; Teach Patient/Family Skin Care Management (Meg Joseph, FERNANDA) Outcome: Patient will not have Evidence of Injury Such as Skin Breakdown, Scrapes, Cuts, or Bruising (Meg Joseph RN) Status: Ongoing (Meg Joseph, FERNANDA) Outcome: Patient will Report Any Altered Sensation or Pain at Site of Skin Impairment (Meg Joseph RN) Status: Ongoing (Meg Joseph RN) Outcome: Patients Incisions and Wounds will be without Signs or Symptoms of Infection (Meg Joseph RN) Status: Ongoing (Meg Joseph RN) Outcome: Patient will Demonstrate Understanding of Plan to Heal Skin and Prevent Reinjury and Verbalize Risk Factors (Meg Joseph RN) Status: Ongoing (Meg Joseph, RN) Parenting Impaired State: Not Applicable (Meg Joseph, RN) Nutrition State: Not Applicable (Meg Joseph, RN) Grieving State: Not Applicable (Meg Jake, RN) Additional Care Plan State: Actual (Tanisha Fleming RN) Nursing Diagnosis or r/t: (Tanisha Fleming RN) Goal(s): Patient will breastfeed infant at least 8 times in 24 hours. (Tanisha Fleming RN) Interventions: Support families efforts in their infant after delivery. (Tanisha Fleming RN) Outcome Status: Ongoing (Tanisha Fleming RN)
[2016-04-29 08:08] VITALS: BP 121/76
--- NOTE | 2016-04-29 09:39 | PDOC PROGRESS REPORT ---
Subjective-OB Subjective: Post Delivery Day: 25 year old. Denies any needs at this time Doing well, no c/o, holding baby, unsure if baby is going home, scant lochia, eating well Physical Exam (OB) Vital Signs: Temp Pulse Resp BP Pulse Ox 98.0 F 55 L 16 121/76 100 04/29/16 08:52 04/29/16 08:52 04/29/16 08:52 04/29/16 07:49 04/29/16 08:52 - PIH/Pre-Eclampsia Clonus: Negative Headache: Absent Epigastric Pain: No Visual Changes: No - Lochia Lochia Amount: Small 10-25 ml Lochia Color: Rubra/Red - Abdomen Description: Tender Hernia Present: No Fundal Description: Firm Fundal Height: u/u - u/2 Objective-Diagnostic Laboratory: 04/28/16 07:12 Assessment and Plan(PN) - Assessment and Plan (1) Acute blood loss anemia Is this a current diagnosis for this admission?: Yes (2) Vaginal delivery Is this a current diagnosis for this admission?: Yes - Time Spent with Patient Time with patient: Less than 15 minutes - home today Medications reviewed and adjusted accordingly: Yes - Disposition Anticipated Discharge: Home
--- NOTE | 2016-04-29 09:43 | PDOC DISCHARGE SUMMARY ---
Final Diagnosis Discharge Date: 04/29/16 - Final Diagnosis (1) Acute blood loss anemia Is this a current diagnosis for this admission?: Yes (2) Vaginal delivery Is this a current diagnosis for this admission?: Yes Discharge Data - Discharge Medication Home Medications: Vit/Iron Fumarate/FA [ Tablet] 1 each PO DAILY 04/26/16 Pseudoeph/Dm/Guaifen/Acetamin [Tylenol Cold Severe Congestion] 1 each PO PRN PRN 04/26/16 Gestational Age: 37.6 Reason(s) for Admission: Induction of Labor, Status, Group B Strep Positive Admission Note: IUGR Procedures: NST, Ultrasound Intrapartum Procedure(s): Spontaneous Vaginal Delivery Complication(s): Laceration-Vaginal Laceration-Degree: 2nd - [place] Data Baby 1 Female at 1 minute: 8 at 5 minutes: 9 Weight: 2.041 kg Home with Mother: No Complications: Yes - IUGR - Diagnosis Test Laboratory: Temp Pulse Resp BP Pulse Ox 98.0 F 55 L 16 121/76 100 04/29/16 08:52 04/29/16 08:52 04/29/16 08:52 04/29/16 07:49 04/29/16 08:52 04/26/16 04/26/16 04/28/16 18:41 19:03 07:12 RBC 3.69 L 3.55 L Hgb 11.4 L 10.9 L Hct 32.2 L 31.1 L Urine Opiates Screen NEGATIVE - Discharge information/Instructions Discharge Activity: Activity As Tolerated, No Lifting Over 10 Pounds, Pelvic Rest, No tub bath Discharge Diet: As Tolerated Disposition: HOME, SELF-CARE Follow [facility]: [facility] in: 4, Weeks
[2016-04-29] MEDS: SENNOSIDES/DOCUSATE 8.6-50 MG 1 EACH TABLET PO SCH (10:10)
[2016-04-29] MEDS: FERROUS SULFATE 325 MG TABLET PO SCH (10:10)
[2016-04-29] MEDS: DOCUSATE SODIUM 100 MG CAPSULE PO SCH (10:10)
[2016-04-29] MEDS: PRENATAL VITAMIN W-O CA NO5/FE FUMARATE/FA CAPSULE PO SCH (10:10)
[2016-04-29] MEDS: FAMOTIDINE 20 MG TABLET PO SCH (10:10)
== END 2016-04-29 15:10 | disposition home or self-care (01) | DRG 775 ==
LOC: LR 18:31 → 2S 04-27 21:30
PROVIDERS: ADMIT Obstetrics & Gynecology; ATTEND Obstetrics & Gynecology
PROC: 3E0P7GC Introduction of Other Therapeutic Substance into Female Reproductive, Via Natural or Artificial Opening (ICD-10-PCS; 2016-04-26)
PROC: 10E0XZZ Delivery of Products of Conception, External Approach (ICD-10-PCS; principal; 2016-04-27)
PROC: 0KQM0ZZ Repair Perineum Muscle, Open Approach (ICD-10-PCS; 2016-04-27)
PROC: 3E033VJ Introduction of Other Hormone into Peripheral Vein, Percutaneous Approach (ICD-10-PCS; 2016-04-27)
PROC: 4A1HXCZ Monitoring of Products of Conception, Cardiac Rate, External Approach (ICD-10-PCS; 2016-04-27)
DX: O36.5930 Maternal care for other known or suspected poor fetal growth, third trimester, not applicable or unspecified (principal); D62 Acute posthemorrhagic anemia; O70.1 Second degree perineal laceration during delivery; O62.3 Precipitate labor; O99.824 Streptococcus B carrier state complicating childbirth; O69.81X0 Labor and delivery complicated by cord around neck, without compression, not applicable or unspecified; O99.02 Anemia complicating childbirth; Z3A.37 37 weeks gestation of pregnancy; Z37.0 Single live birth
CPT/HCPCS: 36415; 80307; 81005; 85025; 85027; 86592; 86850; 86900; 86901; 94760; J2540; J2590; J3490